=== PATIENT | male | born 1940 | race African-American/Black ===

== ENCOUNTER → 2017-02-03 | Outpatient (CLI) | payer MEDICARE ==
--- NOTE | 2017-02-03 10:29 | CT ---
EXAMINATION TYPE: CT ankle LT wo con DATE OF EXAM: 02/03/2017 COMPARISON: NONE HISTORY: Pain in Lt ankle and foot, primary osteoarthritis, pes planus, arthritis and pes planovalgus deformity all per order. CT DLP: 225 mGycm Automated exposure control for dose reduction was used. Scanning of the ankle is performed without co ntrast. FINDINGS: There is no acute fracture or dislocation in the left ankle. There is moderate to large inferior calc aneal spur. Distal Achilles tendon is felt within normal limits. There is marked narrowing of the posterior medial mortise with subchondral cystic change. Underlying ligamentous injury is suspected. There is narrowing of tibial articulation with lateral malleolus wit h subchondral cystic change. There is heterotopic ossification with posterior tibiotalar fluid. There is marked loss of normal sinus tarsi fat. There is joint space loss inferior anterior calcaneus articulation with cuboid. There is partial visu alization of metatarsal joints which are intact. The peroneal tendons are felt grossly intact. Dense vascular atherosclerotic calcification of arterial vessels noted. IMPRESSION: MARKED ANKLE MORTISE NARROWING RAISING CONCERN FOR OLD TRAUMA OR LIGAMENTOUS INJURY. DEGENERATIVE AND OTHER FINDINGS NOTED ABOVE. SINUS TARSI SYNDROME SUSPECTED.
== END | disposition home or self-care (01) ==
LOC: RADCTMAIN 08:22
PROVIDERS: ATTEND Orthopaedic Surgery
DX: R93.7 Abnormal findings on diagnostic imaging of other parts of musculoskeletal system (principal); M19.072 Primary osteoarthritis, left ankle and foot; M21.42 Flat foot [pes planus] (acquired), left foot

== ENCOUNTER → 2017-08-07 | Outpatient (CLI) | payer MEDICARE | END | disposition home or self-care (01) | LOC: PTMAIN 09:59 | PROVIDERS: ATTEND Otolaryngology | DX: R13.10 Dysphagia, unspecified (principal) | CPT/HCPCS: 31579 ==

== ENCOUNTER → 2017-11-17 | Outpatient (CLI) | payer MEDICARE ==
--- NOTE | 2017-11-17 14:33 | CT ---
EXAMINATION TYPE: CT lower extremity LT wo con DATE OF EXAM: 11/17/2017 COMPARISON: CT left ankle 02/03/2017 HISTORY: 77-year-old male Pain in left ankle and joints of left foot. Prophecy protocol. TECHNIQUE: Contiguous axial scanning of the left knee followed by the left ankle without IV contrast. Coronal and sagittal reconstructions performed. CT DLP: 832.9 mGycm Automated exposure control for dose reduction was used. FINDINGS: Imaging performed for surgical planning purposes. There is a left total knee arthroplasty. A some bon y fragmentation or heterotopic ossification along the superolateral aspect of the patella. There is a 1.6 x 0.9 cm bony exostosis projecting distally from the medial proximal tibial metaphysis . 1.6 cm loose body along the popliteus tendon sheath. Subsequent scanning of the ankle shows end-stage degenerative joint space narrowing at the tibiotalar joint more severe along the medial aspect of the joint. Moderate degenerative changes at the first M TP joint. Small plantar calcaneal spur. IMPRESSION: CT OF THE LEFT KNEE AND ANKLE FOR SURGICAL PLANNING PURPOSES. END-STAGE TIBIOTALAR JOINT OA AND PRIOR LEFT TOTAL KNEE ARTHROPLASTY. SOME BONY FRAGMENTATION OR HETEROTOPIC OSSIFICATION IS NOTED ALONG THE SUPEROLATERAL ASPECT OF THE PATELLA.
== END | disposition home or self-care (01) ==
LOC: RADCTMAIN 13:31
PROVIDERS: ATTEND Orthopaedic Surgery
DX: Z01.818 Encounter for other preprocedural examination (principal); M19.072 Primary osteoarthritis, left ankle and foot; Z96.652 Presence of left artificial knee joint

== ENCOUNTER → 2018-01-20 | Outpatient (CLI) | payer MEDICARE ==
--- NOTE | 2018-01-20 13:01 | MR ---
EXAMINATION TYPE: MR lumbar spine wo con DATE OF EXAM: 01/20/2018 COMPARISON: 09/11/2011 HISTORY: 77-year-old male Low back pain / Spondylosis TECHNIQUE: Multiplanar, multisequence images of the lumbar spine were acquired. Findings: Vertebral body heights are preserved. Hypertrophic facet arthropathy mid to lower lumbar spine with g rade 1 retrolisthesis at L2-L3 and L3-L4. Moderate multilevel degenerative disc disease redemonstrated with bulging discs and disc desiccation. Changes are more moderate to advanced at L2-L3 where there is mixed Modic type I and type II endplat e change, interval progression from 2011. Heterogeneous marrow signal without suspicious bone marrow replacement. Congenital spinal canal stenosis is noted. Multilevel ligamentum flavum thickening. Conus medullaris is normal. Multilevel severe spinal canal stenoses are redemonstrated. At T12-L1, no significant canal or foraminal stenosis. At L1-L2, minimal bulging disc with mild congenital canal narrowing. No significant canal or foramina l stenosis. At L2-L3, grade 1 retrolisthesis with facet arthropathy, ligamentum flavum thickening, and bulging di sc. This contributes to continued severe spinal canal stenosis. There is effacement of the CSF signal at this level. Moderate to severe bilateral neuroforaminal stenosis. At L3-L4, diffuse disc bulge with ligamentum flavum thickening and facet arthropathy as well as grade 1 retrolisthesis. There is continued severe spinal canal stenosis, increased in the interval. Comple te effacement of CSF signal. Moderate left and mild right neuroforaminal stenosis. At L4-L5, diffuse disc bulge with ligamentum flavum thickening and facet arthropathy. Changes result in moderate to severe spinal canal stenosis which may be slightly improved from prior exam. Minimal C SF signal is present at this level. Moderate bilateral neural foraminal stenosis. At L5-S1, diffuse disc bulge with hypertrophic facet arthropathy and ligamentum flavum thickening. Th ere is moderate to severe spinal canal stenosis with improvement and some of the previously seen epid ural lipomatosis. Moderate left and severe right neuroforaminal stenosis. No prevertebral or paravertebral soft tissue abnormality. IMPRESSION: 1. Moderate multilevel degenerative disc disease, more advanced at L2-L3 where the changes are progre ssed from 2012 now with mixed Modic type I and type II endplate change. 2. Hypertrophic facet arthropathy and ligamentum flavum thickening throughout with grade 1 retrolisth esis at L2-L3 and L3-L4 similar to prior. 3. Changes are superimposed on a congenital spinal canal stenosis. We note that there has been some i mprovement in the previous epidural lipomatosis in the lower lumbar spine. 4. However, multilevel severe spinal canal stenoses persist particularly at L2-L3 and increased at L3 -L4. 5. Moderate to severe spinal canal stenosis at L4-L5 and L5-S1, slightly improved at L5-S1. 6. Variable bilateral neuroforaminal stenoses as outlined above, severe on the right at L5-S1.
== END ==
LOC: RADMRIMAIN 08:46
PROVIDERS: ATTEND Physical Medicine & Rehabilitation
DX: M48.061 Spinal stenosis, lumbar region without neurogenic claudication (principal); M99.73 Connective tissue and disc stenosis of intervertebral foramina of lumbar region; M43.16 Spondylolisthesis, lumbar region; M51.36 Other intervertebral disc degeneration, lumbar region; M46.96 Unspecified inflammatory spondylopathy, lumbar region; E88.2 Lipomatosis, not elsewhere classified
CPT/HCPCS: 72148

== ENCOUNTER → 2018-03-29 | Outpatient (CLI) | payer MEDICARE ==
[2018-03-29 12:24] LABS: Appearance,Urine Clear (Clear); Bilirubin,Urine Negative (Negative); Blood,Urine Negative (Negative); Color,Urine Dark Yellow; Glucose,Urine (UA) Negative (Negative); HCT 46.5 % (39.0-53.0); HGB 14.9 gm/dL (13.0-17.5); Ketones,Urine Negative (Negative); Leukocyte Esterase,Urine Negative (Negative); MCH 32.4 pg (25.0-35.0); Macrocytosis Slight; Nitrite,Urine Negative (Negative); Platelet Count 210 k/uL (150-450); Protein,Urine Trace (Negative); RDW 14.3 % (11.5-15.5); Specific Gravity,Urine 1.017 (1.001-1.035); Urobilinogen,Urine <2.0 mg/dL (<2.0); WBC 5.4 k/uL (3.8-10.6)
[2018-03-29 12:28] LABS: Partial Thromboplastin Time 26.6 sec (22.0-30.0); Prothrombin Time 10.1 sec (9.0-12.0)
[2018-03-29 12:38] LABS: Calcium 10.4 mg/dL (8.4-10.2); Potassium 4.9 mmol/L (3.5-5.1); Total Bilirubin 0.6 mg/dL (0.2-1.3); Total Protein 7.4 g/dL (6.3-8.2)
== END | disposition home or self-care (01) ==
LOC: LABPAT 11:14
PROVIDERS: ATTEND Orthopaedic Surgery
DX: Z01.812 Encounter for preprocedural laboratory examination (principal); Z51.81 Encounter for therapeutic drug level monitoring; Z79.01 Long term (current) use of anticoagulants
CPT/HCPCS: 36415; 80053; 81003; 85027; 85610; 85730; 86850; 86900; 86901; 87070

== ENCOUNTER 2018-04-08 07:16 | Inpatient (IN) | payer MEDICARE ==
[2018-04-01 11:22] VITALS: BMI 33.0
[~2018-04-08 07:16] MED LIST: ACETAMINOPHEN TAB 500 MG TAB PO ONE; HYDROmorphone 0.5 MG/0.5 ML SYRINGE IVP PRN; LACTATED RINGERS 1,000 ML IV SCH; MELOXICAM 7.5 MG TAB PO ONE; MORPHINE SULFATE 2 MG/ML SYRINGE IV PRN; ROPIVACAINE 246.25 MG, EPINEPHrine 0.5 MG, KETOROLAC 30 MG, cloNIDine HCL/PF 80 MCG, WA... MISCELLANE ONE; TRANEXAMIC ACID 1,000 MG in SODIUM CHLORIDE 0.9% 50 ML IVPB ONE; ceFAZolin IN SWFI 2 GM/20 ML SYRINGE IVP ONE
[2018-04-08] MEDS ORDERED: LACTATED RINGERS 1,000 ML IV ONE ×2 (07:42→10:43)
[2018-04-08] MEDS ORDERED: ONDANSETRON 4 MG/2 ML VIAL IVP ONE (07:52)
[2018-04-08] MEDS ORDERED: DEXAMETHASONE SOD PHOS (MDV) 100 MG/10 ML VIAL IVP ONE (07:53)
[2018-04-08] MEDS ORDERED: MAGNESIUM HYDROXIDE 2,400 MG/10 ML CUP PO PRN (09:04)
[2018-04-08] MEDS ORDERED: HYDROmorphone 1 MG/ML 1 ML SYRINGE IVP PRN ×3 (09:04)
[2018-04-08] MEDS ORDERED: DIAZEPAM 5 MG TAB PO PRN (09:04)
[2018-04-08] MEDS ORDERED: hydrOXYzine PAMOATE 25 MG CAP PO PRN (09:04)
[2018-04-08] MEDS ORDERED: NALOXONE 0.4 MG/ML 1 ML VIAL IV PRN (09:04)
[2018-04-08] MEDS ORDERED: ONDANSETRON 4 MG/2 ML VIAL IVP PRN (09:04)
[2018-04-08] MEDS ORDERED: HYDROcodone/APAP 5-325MG 1 EACH TAB PO PRN (09:04)
[2018-04-08] MEDS ORDERED: MIDAZOLAM 2 MG/2 ML VIAL ONE (09:22)
[2018-04-08] MEDS ORDERED: fentaNYL (PF) 50 MCG/ML 2 ML AMP ONE (09:22)
[2018-04-08] MEDS ORDERED: PROPOFOL 10 MG/ML 20 ML VIAL IV ONE (09:22)
[2018-04-08] MEDS ORDERED: HEPARIN SODIUM,PORCINE 10,000 UNIT/ML 1 ML VIAL ONE (09:22)
[2018-04-08] MEDS ORDERED: TRANEXAMIC ACID 1,000 MG/10 ML VIAL ONE (09:22)
[2018-04-08] MEDS ORDERED: SODIUM CHLORIDE 0.9% 100 ML BAG ONE (09:22)
[2018-04-08] MEDS ORDERED: LACTATED RINGERS 1,000 ML BAG IV ONE (09:22)
[2018-04-08] MEDS ORDERED: PHENYLEPHRINE-0.9% NACL SYG 1 MG/10 ML SYRINGE ONE (09:22)
[2018-04-08] MEDS ORDERED: ceFAZolin 3,000 MG in SODIUM CHLORIDE 0.9% IRRIGATIO 3,000 ML IRRIGATION ONE (09:22)
--- NOTE | 2018-04-08 10:49 | P.OP ---
Date of Procedure: 04/08/18 Preoperative Diagnosis: Severe osteoarthritis left hip Postoperative Diagnosis: Severe osteoarthritis left hip Procedure(s) Performed: Left total hip arthroplasty with a direct anterior approach Implants: Martinez [employer] nephew Polarstem size 5 standard Martinez [employer]hew R3, 3 hole acetabular shell, 52 mm [employer]hew reflection 6.5 mm cancellus screw, 20 mm 2 [employer]hew R3, XLPE 20 acetabular liner [employer]hew Oxinium femoral head 36 m, +0 All components were press-fit. The articulation is Oxinium on polyethylene. Anesthesia: spinal Surgeon: Mata Simons Clerical Manager #1: Noa Menard Estimated Blood Loss (ml): 150 (64 mL returned with Cell Saver) Pathology: other (Femoral head) Condition: stable Disposition: PACU Indications for Procedure: After failure of conservative treatment we discussed the surgical and nonsurgical treatment options at length. Patient wishes to proceed with a total hip arthroplasty with a direct anterior approach. Complications specific to this procedure were discussed at length, including but not limited to infection, leg length discrepancy, dislocation, and nerve injury. Patient is aware of all these complications and informed consent was obtained Operative Findings: The operative findings are consistent with severe osteoarthritis of the left hip Description of Procedure: Patient was seen and evaluated in the preoperative area, consent was reviewed, and the surgical site was marked with a skin marker. Patient was then brought to the operating room and given prophylactic antibiotics intravenously. 1 g of Tranexamic acid was also given. A spinal anesthetic was administered by the anesthesia department. The patient was then placed on the [place] table with the bony prominences well-padded. The hip area was then prepped and draped in usual sterile fashion. A universal timeout was then performed, which confirmed the patient's name, surgical site, ALLERGIES, and procedure being performed. Next the incision site was located at 1 cm distal and 1 cm lateral to the anterior superior iliac spine. The skin and subcutaneous tissues were sharply incised. Incision was carefully dissected down to the fascia overlying the tensor fascia river muscle. This fascia was then incised in line with the incision. Next, using blunt finger dissection, the tensor fascia river muscle was dissected off its investing fascia. The muscle was then carefully retracted laterally with a cobra retractor over the lateral neck of the femur. Next, the circumflex vessels were identified and cauterized using the AquaMantis device. The anterior hip capsule was then exposed. The capsule was then opened and an inverted T fashion. Cobra retractors were then placed intracapsularly. The proximal femur was then visualized. The femoral neck was then osteotomized appropriate level above the lesser trochanter. Small amount of traction was placed with the [place] table. A small wedge of bone was then removed from the remaining femoral head. Next, using a corkscrew femoral head was easily removed from the acetabulum. On gross visual inspection, the femoral head had complete loss of articular cartilage in multiple periarticular osteophytes. Attention was then turned to the acetabulum. the acetabulum was exposed and any remaining labrum was excised. Sequential reaming of the acetabulum was performed using fluoroscopic guidance. When the appropriate size was reached, a trial was then placed. The position and fit of the trial was checked with fluoroscopy. The trial was then removed. Then, using fluoroscopic guidance, the final implant was impacted at 20 of anteversion and 40 of abduction, and fully seated in the acetabulum. 2 screws were then placed in the acetabulum. Again fluoroscopy was used to check position of the screws. Next, the liner was then impacted, with a 20 elevated liner located in the anterior superior quadrant. Component locking was confirmed. Attention was then directed to the femur. With the aid of the [place] table, the femur was externally rotated to approximately 130, extended, and abducted under the opposite leg. A side hook was then placed under the proximal femur, and the side hook elevator was used to elevate the proximal femur. Retractors were then placed. A capsular release was performed, as well as a release of the conjoined tendon, which afforded excellent visualization of the proximal femur. Next, a box osteotome was used to lateralize the proximal femur. A cutter hand was then used to locate the femoral canal. Sequential broaching was then performed with appropriate size which afforded excellent fixation in the proximal femur. A trial was then placed with appropriate head and neck, and the hip was gently reduced with the aid of the [place] table. Fluoroscopy was then used to check position of the components, as well as to ensure equal leg lengths. The hip was then gently dislocated and the trials were then removed. Final implants were then impacted and the hip was again reduced. Final fluoroscopic x-rays confirmed that the components were in anatomic position, as well as equal leg lengths. The hip was also taken through range of motion, and found to be stable. The hip was then copiously irrigated with antibiotic solution with pulsatile lavage. The hip was then irrigated with Irrisept solution. The soft tissues were then injected with a ropivacaine solution, which consisted of 246.25 mg of ropivacaine, 0.5 mg of epinephrine, 30 mg of Toradol, 80 g of clonidine, and 48.45 mL of sterile water, for a total of 100 mL of fluid injected. A second dose of 1 g of Tranexamic acid was also given. the fascia was then closed with 2-0 strata fix suture. The subcutaneous tissue was closed with 3-0 Vicryl. The subcuticular tissue was closed with 3-0 strata fix suture. The skin was then closed with Dermabond glue and a sterile silver dressing. The patient was then transferred to the recovery room in stable condition. The registered nurse first assistant LIZETH Petersen was required due to the complexity of surgery, and the need for skilled surgical services tech for positioning, draping, exposure, retraction, and closure of the wound.
--- NOTE | 2018-04-08 11:03 | FL ---
Fluoroscopy HISTORY: Anterior hip replacement 35 seconds fluoroscopy time supplied to the referring clinician. 2 intraoperative C-arm images docum ent the procedure. See dictated report from orthopedic surgery.
--- NOTE | 2018-04-08 11:03 | XR ---
Limited left hip HISTORY: Anterior hip replacement 2 intraoperative C-arm images document the procedure.
--- NOTE | 2018-04-08 12:21 | XR ---
EXAMINATION TYPE: XR Hip Limited LT DATE OF EXAM: 04/08/2018 CLINICAL HISTORY: Left hip pain and osteoarthritis. TECHNIQUE: Single AP portable view of left hip is obtained immediately postoperatively. COMPARISON: None. FINDINGS: Metallic hardware from left hip arthroplasty is seen and appears satisfactory in alignment and position. There is evidence of recent surgery with subcutaneous gas noted laterally. IMPRESSION: Metallic hardware from left hip arthroplasty is satisfactory in position.
[2018-04-08] MEDS: SODIUM CHLORIDE 0.9% 1,000 ML IV SCH (13:10)
--- NOTE | 2018-04-08 14:02 | P.CONS ---
History of Present Illness - Reason for Consult Consult date: 04/08/18 medical Management Requesting physician: Noa Menard - Chief Complaint OA of the left hip - History of Present Illness This is a 77-year-old male patient who presented for an elective total left hip arthroplasty with the direct anterior approach. Patient has a known past medical history of severe osteoarthritis of the left hip. Additional medical history includes GERD, hypertension, osteoarthritis, gout, joint replacement and carpal tunnel syndrome. Patient denies any cardiac history. Patient denies any history of COPD or CHF. Patient denies any diabetes history. Patient is currently resting comfortably in bed. At this time patient denies chest pain or shortness of breath. Patient denies nausea vomiting or diarrhea. Patient denies any urinary burning or frequency. Left hip dressing is clean dry and intact. Patient currently is family at bedside complaints at this time. A.m. labs have been ordered Review of Systems Please refer to HPI otherwise unremarkable Past Medical History Past Medical History: GERD/Reflux, Hypertension, Osteoarthritis (OA) Additional Past Medical History / Comment(s): GOUT IN LEFT HAND History of Any Multi-Drug Resistant Organisms: None Reported Past Surgical History: Joint Replacement, Orthopedic Surgery Additional Past Surgical History / Comment(s): CRYSTAL CARPAL TUNNEL, rt hip replacement, left knee replacement, PATIENT DENIES HISTORY OF HEART CATHERIZATION, ANTERIOR TOTAL LEFT HIP ARTHROPLASTY Past Anesthesia/Blood Transfusion Reactions: No Reported Reaction Past Psychological History: No Psychological Hx Reported Smoking Status: Never smoker Past Alcohol Use History: None Reported Past Drug Use History: None Reported - Past Family History Mother Family Medical History: Congestive Heart Failure (CHF) Brother(s) Family Medical History: Cancer Medications and Allergies Home Medications Medication Instructions Recorded Confirmed Type Aspirin 81 mg PO DAILY 03/10/14 04/08/18 History Atenolol [Tenormin] 25 mg PO QAM 03/10/14 04/08/18 History Cholecalciferol [Vitamin D3] 2,000 unit PO DAILY 03/10/14 04/08/18 History Potassium Chloride [Klor-Con 10] 10 meq PO DAILY 03/10/14 04/08/18 History Sildenafil Citrate [Viagra] 100 mg PO DIRECTED PRN 03/10/14 04/08/18 History Tamsulosin HCl [Flomax] 0.4 mg PO BID 03/10/14 04/08/18 History Allopurinol [Zyloprim] 300 mg PO DAILY 04/01/18 04/08/18 History HYDROcodone/APAP 10-325MG [[place] 1 tab PO Q6HR PRN 04/01/18 04/08/18 History 10-325] Latanoprost [Xalatan 0.005%] 1 drop BOTH EYES HS 04/01/18 04/08/18 History Multivitamins, Thera [Multivitamin 1 tab PO DAILY 04/01/18 04/08/18 History (formulary)] Pantoprazole [Protonix] 40 mg PO QAM 04/01/18 04/08/18 History Valsartan/Hydrochlorothiazide 1 tab PO QAM 04/01/18 04/08/18 History [Valsartan-Hctz 160-12.5 mg Tab] hydrOXYzine PAMOATE [Vistaril] 25 mg PO Q4-6H PRN 04/01/18 04/08/18 History Allergies Allergy/AdvReac Type Severity Reaction Status Date / Time latex Allergy Unknown Verified 04/08/18 13:15 Physical Exam Vitals: Vital Signs Temp Pulse Pulse Resp BP BP Pulse Ox 04/08/18 11:56 66 16 116/67 98 04/08/18 11:41 64 16 112/67 99 04/08/18 11:26 62 16 115/64 100 04/08/18 11:11 97.2 F L 75 16 119/60 100 04/08/18 07:36 97.8 F 80 18 136/74 98 Intake and Output 04/07/18 04/08/18 04/08/18 22:59 06:59 14:59 Intake Total 1201 Output Total 150 Balance 1051 Intake: IV 1201 Output: Estimated Blood Loss 150 Other: Weight 104.326 kg Head normocephalic Neck supple Lungs clear to auscultation bilaterally no wheezing or crackles Heart regular rate and rhythm S1-S2, no rub or gallop Abdomen is soft nontender nondistended positive bowel sounds no hepatosplenomegaly Extremities no edema. Left hip dressing clean Dry and intact Neuro alert and orientated to 3 Assessment and Plan Assessment: 1. Status post total left hip arthroplasty with Dr. Simons. Pain meds per surgical services. She currently on aspirin 325 twice a day for DVT prophylaxis 2. History of GERD. home meds resumed 3. Essential hypertension. Home meds resumed. 4. History of osteoarthritis 5. History of gout. home meds resumed. A.m. labs ordered Thank you for this consultation we will continue to follow patient closely throughout stay Patient planning to be DC'd home when cleared Time with Patient: Greater than 30 (Greater than 60% of the total time spent in counseling and coordination of care. I performed an examination of the patient and discussed their management with the Nurse Practitioner. I have reviewed the Nurse Practitioner's notes and agree with the documented findings and plan of care)
[2018-04-08 14:07] LABS: Albumin 3.4 g/dL (3.5-5.0); Calcium 9.4 mg/dL (8.4-10.2); Potassium 4.7 mmol/L (3.5-5.1); Total Bilirubin 0.5 mg/dL (0.2-1.3); Total Protein 6.4 g/dL (6.3-8.2)
[2018-04-08] MEDS: HYDROcodone/APAP 5-325MG 1 EACH TAB PO PRN ×2 (16:48→23:12)
[2018-04-08] MEDS: ceFAZolin IN SWFI 2 GM/20 ML SYRINGE IVP SCH (18:24)
[2018-04-08] MEDS ORDERED: LATANOPROST 0.005% OPHTH DROPS 2.5 ML BTL BOTH EYES SCH (21:00)
[2018-04-08] MEDS ORDERED: SENNOSIDES-DOCUSATE SODIUM 1 EACH TAB PO SCH (21:00)
[2018-04-08] MEDS: ASPIRIN 325 MG TAB PO SCH (21:16)
[2018-04-08] MEDS: TAMSULOSIN 0.4 MG CAP.ER.24H PO SCH (21:16)
[2018-04-09] MEDS: ceFAZolin IN SWFI 2 GM/20 ML SYRINGE IVP SCH (00:25)
[2018-04-09] MEDS: SODIUM CHLORIDE 0.9% 1,000 ML IV SCH (05:51)
[2018-04-09] MEDS: HYDROcodone/APAP 5-325MG 1 EACH TAB PO PRN ×2 (05:51→13:37)
[2018-04-09 07:57] LABS: Basophils % (A) 0 %; Eosinophils # (A) 0.1 k/uL (0-0.7); Eosinophils % (A) 1 %; HCT 40.6 % (39.0-53.0); HGB 13.2 gm/dL (13.0-17.5); Lymphocytes # (A) 1.2 k/uL (1.0-4.8); Lymphocytes % (A) 13 %; MCH 32.9 pg (25.0-35.0); MCHC 32.6 g/dL (31.0-37.0); MCV 100.9 fL (80.0-100.0); Macrocytosis Slight; Mean Platelet Volume 8.5; Monocytes # (A) 0.6 k/uL (0-1.0); Monocytes % (A) 7 %; Neutrophils # (A) 7.2 k/uL (1.3-7.7); Neutrophils % (A) 77 %; Platelet Count 176 k/uL (150-450); RBC 4.02 m/uL (4.30-5.90); RDW 13.7 % (11.5-15.5); WBC 9.4 k/uL (3.8-10.6)
[2018-04-09] MEDS: ASPIRIN 325 MG TAB PO SCH (08:08)
[2018-04-09] MEDS: TAMSULOSIN 0.4 MG CAP.ER.24H PO SCH (08:10)
[2018-04-09 08:19] LABS: Albumin 3.4 g/dL (3.5-5.0); Calcium 9.6 mg/dL (8.4-10.2); Potassium 4.5 mmol/L (3.5-5.1); Total Bilirubin 0.6 mg/dL (0.2-1.3); Total Protein 6.5 g/dL (6.3-8.2)
--- NOTE | 2018-04-09 08:24 | P.DS ---
Providers Date of admission: 04/08/18 07:16 Expected date of discharge: 04/09/18 Attending physician: Mata Simons Consults: 04/08/18 09:04 Consult Physician Routine Consulting Provider: Cassidy Cook Consult Reason/Comments: medical management Do you want consulting provider notified?: Yes Primary care physician: Cassidy Cook - Discharge Diagnosis(es) (1) S/P total hip arthroplasty Current Visit: Yes Status: Acute (2) Primary osteoarthritis of left hip Current Visit: Yes Status: Acute Hospital Course: This is a 77-year-old male with known history of degenerative arthritis of the left hip. The patient presents for evaluation. After discussion and consideration patient elects to proceed with total hip arthroplasty. The patient is seen preoperatively by Dr. Simons and medically cleared for surgery by their primary care physician. Patient is admitted to [facility] on 04/08/18 for total hip arthroplasty. The procedures performed without complication or sequelae. The patient is doing well postoperatively. Labs and vital signs are stable on day of discharge. On day of discharge patient's hip incision is healing well. There is minimal erythema. There is no drainage noted at this time. There is minimal soft tissue swelling to the hip and thigh. Patient has full foot and ankle motion without difficulty or pain. Neurovascular status to the left lower extremity is intact. Patient is discharged home in good condition. Please see med rec for accurate list of home medications. Plan - Discharge Summary Discharge Rx Participant: Yes New Discharge Prescriptions: New Aspirin 325 mg PO BID #60 tab No Action Tamsulosin HCl [Flomax] 0.4 mg PO BID Sildenafil Citrate [Viagra] 100 mg PO DIRECTED PRN PRN Reason: SEXUAL DYSFUNCTION Potassium Chloride [Klor-Con 10] 10 meq PO DAILY Cholecalciferol [Vitamin D3] 2,000 unit PO DAILY Atenolol [Tenormin] 25 mg PO QAM Aspirin 81 mg PO DAILY Latanoprost [Xalatan 0.005%] 1 drop BOTH EYES HS Pantoprazole [Protonix] 40 mg PO QAM HYDROcodone/APAP 10-325MG [[place] 10-325] 1 tab PO Q6HR PRN PRN Reason: Pain Valsartan/Hydrochlorothiazide [Valsartan-Hctz 160-12.5 mg Tab] 1 tab PO QAM Allopurinol [Zyloprim] 300 mg PO DAILY hydrOXYzine PAMOATE [Vistaril] 25 mg PO Q4-6H PRN PRN Reason: Pain Multivitamins, Thera [Multivitamin (formulary)] 1 tab PO DAILY Discharge Medication List Aspirin 81 mg PO DAILY 03/10/14 [History] Atenolol [Tenormin] 25 mg PO QAM 03/10/14 [History] Cholecalciferol [Vitamin D3] 2,000 unit PO DAILY 03/10/14 [History] Potassium Chloride [Klor-Con 10] 10 meq PO DAILY 03/10/14 [History] Sildenafil Citrate [Viagra] 100 mg PO DIRECTED PRN 03/10/14 [History] Tamsulosin HCl [Flomax] 0.4 mg PO BID 03/10/14 [History] Allopurinol [Zyloprim] 300 mg PO DAILY 04/01/18 [History] HYDROcodone/APAP 10-325MG [[place] 10-325] 1 tab PO Q6HR PRN 04/01/18 [History] Latanoprost [Xalatan 0.005%] 1 drop BOTH EYES HS 04/01/18 [History] Multivitamins, Thera [Multivitamin (formulary)] 1 tab PO DAILY 04/01/18 [History ] Pantoprazole [Protonix] 40 mg PO QAM 04/01/18 [History] Valsartan/Hydrochlorothiazide [Valsartan-Hctz 160-12.5 mg Tab] 1 tab PO QAM [History] hydrOXYzine PAMOATE [Vistaril] 25 mg PO Q4-6H PRN 04/01/18 [History] Aspirin 325 mg PO BID #60 tab 04/09/18 [Rx] Follow up Appointment(s)/Referral(s): Cassidy Cook MD [Primary Care Provider] - 1 Week Mata Simons DO [Doctor of Osteopathic Medicine] - 2 Weeks Activity/Diet/Wound Care/Special Instructions: Weightbearing as tolerated with walker. Leave dressing intact. Dressing may be removed by home care nurse in 10 days. May shower with dressing on. Pain management per primary care physician. Please follow-up with [facility] in 2 weeks and call with any questions or concerns, . Discharge Disposition: HOME WITH HOME HEALTH SERVICES
[2018-04-09] MEDS ORDERED: ATENOLOL 25 MG TAB PO SCH (09:00)
[2018-04-09] MEDS ORDERED: VALSARTAN 160 MG TAB PO SCH (09:00)
[2018-04-09] MEDS ORDERED: MELOXICAM 7.5 MG TAB PO SCH (09:00)
[2018-04-09] MEDS ORDERED: HYDROCHLOROTHIAZIDE 12.5 MG CAP PO SCH (09:00)
[2018-04-09] MEDS ORDERED: PANTOPRAZOLE 40 MG TABLET PO SCH (09:00)
[2018-04-09] MEDS ORDERED: ALLOPURINOL 300 MG TAB PO SCH (09:00)
[2018-04-09] MEDS ORDERED: CHOLECALCIFEROL 1,000 UNIT TAB PO SCH (09:00)
[2018-04-09] MEDS ORDERED: MULTIVITAMINS, THERA 1 EACH TAB PO SCH (09:00)
--- NOTE | 2018-04-09 10:19 | P.PN ---
Subjective Progress Note Date: 04/09/18 This is a 77-year-old male patient who presented for an elective total left hip arthroplasty with the direct anterior approach. Patient has a known past medical history of severe osteoarthritis of the left hip. Additional medical history includes GERD, hypertension, osteoarthritis, gout, joint replacement and carpal tunnel syndrome. Patient denies any cardiac history. Patient denies any history of COPD or CHF. Patient denies any diabetes history. Patient is currently resting comfortably in bed. At this time patient denies chest pain or shortness of breath. Patient denies nausea vomiting or diarrhea. Patient denies any urinary burning or frequency. Left hip dressing is clean dry and intact. Patient currently is family at bedside complaints at this time. A.m. labs have been ordered On 04/09/2018 patient is currently alert and oriented 3. Patient is currently sitting up in bed. Patient has no complaints at this time. Patient does state he has been up walking around. Patient is planning to be DC'd home today with family and friends. At this time patient denies chest pain or shortness breath. Patient denies nausea vomiting or diarrhea. Patient denies any urinary burning or frequency. Objective - Vital Signs Vital signs: Vital Signs Temp 97.5 F L 04/09/18 08:11 Pulse 70 04/09/18 08:11 Resp 18 04/09/18 08:11 BP 109/67 04/09/18 08:11 Pulse Ox 99 04/09/18 08:11 Intake & Output 04/08/18 04/09/18 04/09/18 18:59 06:59 18:59 Intake Total 1441 650 380 Output Total 550 800 250 Balance 891 -150 130 Weight 104.326 kg Intake: IV 1201 Intake, IV Titration 650 Amount Sodium Chloride 0.9% 1, 650 000 ml @ 65 mls/hr IV . [id number] SHABNAM Rx#:[id number] Oral 240 380 Output: Urine 400 800 250 Estimated Blood Loss 150 Other: # Voids 2 - Exam ead normocephalic Neck supple Lungs clear to auscultation bilaterally no wheezing or crackles Heart regular rate and rhythm S1-S2, no rub or gallop Abdomen is soft nontender nondistended positive bowel sounds no hepatosplenomegaly Extremities no edema. Left hip dressing clean Dry and intact Neuro alert and orientated to 3 - Labs CBC & Chem 7: 04/09/18 07:42 04/09/18 07:42 Labs: Abnormal Lab Results - Last 24 Hours (Table) 04/08/18 04/09/18 04/09/18 Range/Units 13:34 07:42 07:42 RBC 4.02 L (4.30-5.90) m/uL MCV 100.9 H (80.0-100.0) fL Chloride 111 H 109 H (98-107) mmol/L Carbon Dioxide 18 L (22-30) mmol/L BUN 30 H 36 H (9-20) mg/dL Creatinine 1.27 H (0.66-1.25) mg/dL Glucose 188 H 128 H (74-99) mg/dL Albumin 3.4 L 3.4 L (3.5-5.0) g/dL Assessment and Plan Assessment: 1. Status post total left hip arthroplasty with Dr. Simons. Pain meds per surgical services. Patient currently on aspirin 325 twice a day for DVT prophylaxis. Patient is currently postop day 1. Patient has adequate pain control at this time 2. History of GERD. home meds resumed 3. Essential hypertension. Home meds resumed. 4. History of osteoarthritis 5. History of gout. home meds resumed. 6. Elevated creatinine this does appear baseline for patient. Creatinine 1.27. Patient to follow up closely with PCP Thank you for this consultation we will continue to follow patient closely throughout stay Patient planning to be DC'd home when cleared I performed an examination of the patient and discussed their management with the Nurse Practitioner. I have reviewed the Nurse Practitioner's notes and agree with the documented findings and plan of care
[2018-04-09 14:26] VITALS: BP 96/58; PULSE 81; RESP 16; TEMP 98.1
== END 2018-04-09 14:50 | disposition home health service (06) | DRG 470 ==
LOC: 2ORMAIN 07:16 → 4SSUR 11:05
PROVIDERS: ADMIT Orthopaedic Surgery; ATTEND Orthopaedic Surgery
PROC: 0SRB06A Replacement of Left Hip Joint with Oxidized Zirconium on Polyethylene Synthetic Substitute, Uncemented, Open Approach (ICD-10-PCS; principal; 2018-04-08 09:15)
DX: M16.12 Unilateral primary osteoarthritis, left hip (principal); I10 Essential (primary) hypertension; K21.9 Gastro-esophageal reflux disease without esophagitis; Z79.82 Long term (current) use of aspirin; Z82.49 Family history of ischemic heart disease and other diseases of the circulatory system; Z96.641 Presence of right artificial hip joint; Z96.652 Presence of left artificial knee joint; Z79.899 Other long term (current) drug therapy; Z88.5 Allergy status to narcotic agent; Z98.42 Cataract extraction status, left eye; Z98.41 Cataract extraction status, right eye; Z91.040 Latex allergy status; R79.89 Other specified abnormal findings of blood chemistry; Z79.891 Long term (current) use of opiate analgesic; M10.9 Gout, unspecified
CPT/HCPCS: 73501; 80053; 85025; 86850; 86891; 86900; 86901; 88300

== ENCOUNTER → 2018-06-24 | Outpatient (CLI) | payer MEDICARE ==
--- NOTE | 2018-06-25 08:04 | CT ---
EXAMINATION TYPE: CT lower extremity LT wo con DATE OF EXAM: 06/24/2018 COMPARISON: 11/17/2017 knee HISTORY: Pain in left ankle and joints of left foot. Prophecy protocol. CT DLP: 630 mGycm Automated exposure control for dose reduction was used. TECHNIQUE: Axial images 3 mm thick sections. 1 mm axial sections were also obtained at the level of t he ankle.. Reconstructed images in the coronal plane and sagittal plane are presented. Images are obt ained through a knee prosthesis causes beam hardening artifact. This may has some limitation. FINDINGS: Left knee: No acute fractures evident. Prosthesis appears intact. No acute fractures are adjacent to the prosthesis. No suspicious lucency to suggest loosening is identified based on these images. There is fragmentation of the superior portion of the patella. This may be related to bipartite danielle la margins appear smooth. Old nonunion fracture could be considered. Finding appears stable from comp arison. Talotibial degenerative changes are noted at the ankle. The talar articular surface appears irregular there is loss of the joint space. The ankle mortise appears intact. Vascular calcifications present IMPRESSION: 1. 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 2. LEFT KNEE PROSTHESIS APPEARS STABLE FROM COMPARISON. 3. ADVANCED OSTEOARTHRITIC DEGENERATIVE CHANGE TALOTIBIAL JUNCTION WITH LOSS OF JOINT SPACE, SUBCHOND RAL CYST FORMATION AND SCLEROTIC CHANGES AT THE ANKLE. 4. CT PERFORMED FOR PRESURGICAL PLANNING.
== END ==
LOC: RADCTMAIN 15:58
PROVIDERS: ATTEND Orthopaedic Surgery
DX: M17.12 Unilateral primary osteoarthritis, left knee (principal); Q74.1 Congenital malformation of knee; Z96.652 Presence of left artificial knee joint

== ENCOUNTER 2021-06-28 19:18 | Emergency (ER) | payer MEDICARE ==
--- NOTE | 2021-06-28 21:50 | XR ---
EXAMINATION TYPE: XR chest 2V DATE OF EXAM: 06/28/2021 COMPARISON: Chest x-ray 03/17/2014 HISTORY: Cough TECHNIQUE: Frontal and lateral views of the chest are obtained. FINDINGS: There is no focal air space opacity, pleural effusion, or pneumothorax seen. The cardiac silhouette size is within normal limits. Gastric bubble beneath the left hemidiaphragm is prominent similar to prior exam, left hemidiaphragm is elevated, correlate for possible left diaphragmatic para lysis. There may be some basilar atelectatic change or scarring. The osseous structures are intact. IMPRESSION: Findings are similar to prior exam.
--- NOTE | 2021-06-28 22:06 | ED ---
General Adult HPI - General Chief complaint: Upper Respiratory Infection Stated complaint: Covid test Time Seen by Provider: 06/28/21 19:38 Source: patient, family, RN notes reviewed, old records reviewed Mode of arrival: ambulatory Limitations: no limitations - History of Present Illness Initial comments: Patient is a 80-year-old male who presents emergency Department complaining of uppersymptoms. Patient's grandson has similar complaints as well as a fever. Patient is concerned regarding possible Covid infection. Clinically runny nose as well as a mild cough. No shortness of breath, chest pain, fevers. No nausea or vomiting or diarrhea. Patient was fully vaccinated for COVID-19 including booster. No other acute complaints at this time. Requesting COVID-19 swab. Did receive his flu vaccine as well. - Related Data Home Medications Medication Instructions Recorded Confirmed Cholecalciferol [Vitamin D3 (25 2,000 unit PO DAILY 03/10/14 04/08/18 Mcg = 1000 Iu)] Potassium Chloride [Klor-Con 10] 10 meq PO DAILY 03/10/14 04/08/18 Sildenafil Citrate [Viagra] 100 mg PO DIRECTED PRN 03/10/14 04/08/18 Tamsulosin HCl [Flomax] 0.4 mg PO BID 03/10/14 04/08/18 atenoloL [Tenormin] 25 mg PO QAM 03/10/14 04/08/18 HYDROcodone/APAP 10-325MG [Tibbie 1 tab PO Q6HR PRN 04/01/18 04/08/18 10-325] Latanoprost [Xalatan 0.005%] 1 drop BOTH EYES HS 04/01/18 04/08/18 Multivitamins, Thera [Multivitamin 1 tab PO DAILY 04/01/18 04/08/18 (formulary)] Pantoprazole [Protonix] 40 mg PO QAM 04/01/18 04/08/18 Valsartan/Hydrochlorothiazide 1 tab PO QAM 04/01/18 04/08/18 [Valsartan-Hctz 160-12.5 mg Tab] allopurinoL [Zyloprim] 300 mg PO DAILY 04/01/18 04/08/18 Previous Rx's Medication Instructions Recorded Aspirin 325 mg PO BID #60 tab 04/09/18 Albuterol Inhaler [Ventolin Hfa 1 puff INHALATION RT-QID #8 gm 06/28/21 Inhaler] Dexamethasone [Decadron] 6 mg PO DAILY 5 Days #5 tablet 06/28/21 Allergies Allergy/AdvReac Type Severity Reaction Status Date / Time latex Allergy Unknown Verified 06/28/21 19:35 Review of Systems ROS Statement: Those systems with pertinent positive or pertinent negative responses have been documented in the HPI. Review of Systems: CONST: Denies fever EYES: Denies blurry vision ENT: Endorses nasal congestion C/V: Denies Chest pain RESP: Denies shortness of breath GI: Denies abdominal pain : Denies dysuria SKIN: Denies rash. MSK: Denies joint pain. NEURO: Denies headache ROS Other: All systems not noted in ROS Statement are negative. Past Medical History Past Medical History: GERD/Reflux, Hypertension, Osteoarthritis (OA), Prostate Disorder Additional Past Medical History / Comment(s): GOUT IN LEFT HAND History of Any Multi-Drug Resistant Organisms: None Reported Past Surgical History: Joint Replacement, Orthopedic Surgery Additional Past Surgical History / Comment(s): CRYSTAL CARPAL TUNNEL, rt hip replacement, left knee replacement, PATIENT DENIES HISTORY OF HEART CATHERIZATION, ANTERIOR TOTAL LEFT HIP ARTHROPLASTY Past Anesthesia/Blood Transfusion Reactions: No Reported Reaction Past Psychological History: No Psychological Hx Reported Smoking Status: Never smoker Past Alcohol Use History: Heavy Past Drug Use History: None Reported - Past Family History Mother Family Medical History: Congestive Heart Failure (CHF) Brother(s) Family Medical History: Cancer General Exam - General Exam Comments Initial Comments: General: Appears in no acute distress. HEAD: Normal with no signs of head trauma. EYES: EOMI ENT: Hearing grossly intact, normal oropharynx. RESPIRATORY: Clear breath sounds bilaterally. No wheezes, rales, or rhonchi. No increased work of breathing. No hypoxia. C/V: Regular rate and rhythm. S1 and S2 auscultated, no edema, peripheral pulses 2+ and intact throughout ABD: Abd is soft, nontender, nondistended EXT: no obvious deformity SKIN: No rashes or lesions observed on exposed skin. NEURO: Alert and oriented 4 Limitations: no limitations Course Vital Signs 06/28/21 06/28/21 06/28/21 19:29 19:45 22:10 Temperature 98.5 F 98.2 F Pulse Rate 80 76 Respiratory 22 20 18 Rate Blood Pressure 141/83 137/80 O2 Sat by Pulse 99 97 Oximetry Medical Decision Making - Medical Decision Making Based on the patient's presentation and physical exam, I'm concerned for COVID- 19 infection. We will obtain Covid swabs, flu swabs as well as a chest x-ray. He was in agreement with this plan. Patient is positive for COVID-19 negative for flu. Chest x-ray revealed no acute process. I discussed results of the patient. He does not meet criteria for monoclonal antibody therapy. We discussed warning quarentine. He'll be given prescription for Decadron, albuterol. Patient was in agreement this plan. I recommended he obtain a pulse ox. I will provide the patient with a prescription for albuterol, Decadron. I instructed the patient to follow up with their PCP in the next 3 days. I explained that the patient should return to the emergency department if they experience any worsening symptoms. Strict return precautions were discussed with the patient. The patient expressed understanding of these instructions. I answered all questions that the patient had. The patient was discharged home in good condition with their prescriptions and follow up information. - Lab Data Lab Results 06/28/21 06/28/21 Range/Units 20:11 20:11 Coronavirus (PCR) Detected A (Not Detectd) Influenza Type A RNA Not Detected (Not Detectd) Influenza Type B (PCR) Not Detected (Not Detectd) Disposition Clinical Impression: COVID-19 virus infection Disposition: HOME SELF-CARE Condition: Good Instructions (If sedation given, give patient instructions): Coronavirus Disease 2019 (COVID-19), COVID-19 (Coronavirus Disease 2019) (ED), COVID-19 and Chronic Health Conditions (ED), COVID-19: Slow the Coronavirus Spread (ED), Face Coverings (Masks) and COVID-19 (ED) Additional Instructions: Use over the counter zinc and vitamin C daily. Quarentine until 2 days after being symptom free. Stay hydrated. Used daily steroids and albuterol as needed for home. Obtain a pulse oximeter to monitor oxygen levels at home. Prescriptions: Dexamethasone [Decadron] 6 mg PO DAILY 5 Days #5 tablet Albuterol Inhaler [Ventolin Hfa Inhaler] 1 puff INHALATION RT-QID #8 gm Is patient prescribed a controlled substance at d/c from ED?: No Referrals: Cassidy Cook MD [Primary Care Provider] - 1-2 days
[2021-06-28 22:49] VITALS: BP 137/80; PULSE 76; RESP 18; TEMP 98.2
== END 2021-06-28 22:10 | disposition home or self-care (01) ==
LOC: EC 19:18
DX: U07.1 COVID-19 (principal); K21.9 Gastro-esophageal reflux disease without esophagitis; I10 Essential (primary) hypertension; M19.90 Unspecified osteoarthritis, unspecified site; Z79.82 Long term (current) use of aspirin; Z91.040 Latex allergy status; Z96.641 Presence of right artificial hip joint; Z96.652 Presence of left artificial knee joint
CPT/HCPCS: 71046; 87502; 87635; 99283

== ENCOUNTER → 2022-02-24 | Outpatient (CLI) | payer MEDICARE ==
--- NOTE | 2022-02-24 12:26 | XR ---
EXAMINATION TYPE: XR chest 2V DATE OF EXAM: 02/24/2022 11:47 AM COMPARISON: Chest radiographs from 06/28/2021 TECHNIQUE: XR chest 2V Frontal and lateral views of the chest. CLINICAL INDICATION:Male, 81 years old with history of SOB; FINDINGS: Lungs/Pleura: There is no evidence of pleural effusion, focal consolidation, or pneumothorax. Pulmonary vascularity: Unremarkable. Heart/mediastinum: Cardiomediastinal silhouette is unremarkable. Musculoskeletal: No acute osseous pathology. Other findings: Elevated left diaphragm with gastric air bubble noted. IMPRESSION: 1. No acute cardiopulmonary disease/process. 2. Elevated left diaphragm with gastric air bubble. This is unchanged from prior.
== END | disposition home or self-care (01) ==
LOC: RADXRMAIN 11:28
PROVIDERS: ATTEND Internal Medicine
DX: J98.6 Disorders of diaphragm (principal)
CPT/HCPCS: 71046

== ENCOUNTER → 2022-11-07 | Outpatient (CLI) | payer MEDICARE ==
--- NOTE | 2022-11-07 11:28 | FL ---
EXAMINATION TYPE: FL sniff test without CXR DATE OF EXAM: 11/07/2022 10:11 AM CLINICAL INDICATION:Male, 82 years old with history of J98.6 DISORDERS OF DIAPHRAGM; COMPARISON: Chest radiograph from 10/17/2022 TECHNIQUE: With the patient standing, fluoroscopy of the right and left hemidiaphragm was observed du ring normal resting respiration as well as deep inspiration, deep expiration, and "sniffing." Fluoroscopic time: 27 seconds Fluoroscopic images: 0 Radiographs taken: 4 DAP: 257.19 mGym2 FINDINGS: No evidence for pneumothorax or pleural effusion. The left diaphragm is slightly elevated compared to the right. The left diaphragm contracts during inspiration. Both hemidiaphragms move together. Normal excursion is demonstrated of the left hemidiaphragm. The right diaphragm contracts during inspiration. Both hemidiaphragms move together. Normal excursion is demonstrated of the right hemidiaphragm. IMPRESSION: Equal excursion of the diaphragms bilaterally. No evidence for paralysis.
== END | disposition home or self-care (01) ==
LOC: RADUSWWP 09:51
PROVIDERS: ATTEND Internal Medicine
DX: J98.6 Disorders of diaphragm (principal)
CPT/HCPCS: 76000

== ENCOUNTER → 2023-01-07 | Outpatient (CLI) | payer MEDICARE ==
--- NOTE | 2023-01-07 11:33 | MR ---
EXAMINATION TYPE: MR lumbar spine wo con DATE OF EXAM: 01/07/2023 COMPARISON: 01/20/2018 HISTORY: Lower back pain x 2 years. TECHNIQUE: T1 and T2 axial and sagittal images of the lumbar spine are submitted. FINDINGS: There is no abnormal signal seen within the visualized spinal cord or paraspinal soft tissu es. Simple appearing left renal cyst. Aorta normal caliber. There is degenerative disc disease disc bulging T11-T12 T12-L1. There is a posterior impression on th e sagittal views the second T11-T12 which is not included Axial images. At L1-2 there is circumferential disc bulging with no canal stenosis. Hypertrophic changes sets. Neur al foramina. At L2-3 there is severe degenerative disc disease. Hypertrophic changes of facets. Circumferential di sc bulging. There is an area of abnormal signal which appears low on T1 and T2 within the right neura l foramina severe right-sided foraminal. There is a 3 mm retrolisthesis of L2 relative to L3 moderate to severe left-sided foraminal impingement. Mild canal stenosis due to diffuse disc bulging. At L3-4 there is a vacuum disc compatible severe degenerative disc disease. Hypertrophied ligamentum flavum and facet joints with circumferential disc bulging borderline mild central stenosis with mild bilateral foraminal encroachment. Stable 1 to 2 mm retrolisthesis L3-L4. At L4-5 there is vacuum disc with severe degenerative disc disease and broad-based disc bulging. Hype rtrophy of the ligamentum flavum and facet joints results in mild central stenosis and bilateral mild foraminal encroachment.. At L5-S1 there is facet arthropathy. There is a large area of abnormal signal adjacent to the right f acet joint measuring 8 mm most likely on the basis of a synovial cyst favored over extruded disc frag ment. This does result in severe right-sided foraminal encroachment, lateral recess stenosis and mode rate lateral compression of the thecal sac and canal stenosis. Advanced facet arthropathy. Mild left- sided foraminal encroachment. Stable epidural lipomatosis. IMPRESSION: 1. There is an area of low signal on T1 and T2 within the right L2-L3 neural foramina results in near -complete obstruction of the foramina. Suggestive calcified structure. Possibly calcified extruded di sc fragment. Recommend postcontrast imaging for further assessment. Additionally, there is canal sten osis and severe left-sided foraminal encroachment. 2. Multilevel severe degenerative disc disease similar to prior exam. Posterior thecal sac constricti on at T11-T12 could be related to epidural lipomatosis. Disc bulging at this level. Recommend thoraci c spine MRI. 3. There is lateral thecal sac constriction at L5-S1 resulting in significant canal stenosis and jacquelyn re foraminal encroachment on the right. There is a 8mm area of intermediate signal adjacent to the ri ght facet joint. Would favor that this is a synovial cyst over extruded disc fragment but postcontras t imaging recommended. 4. Multilevel additional mild canal stenosis and foraminal encroachment as discussed above.
== END | disposition home or self-care (01) ==
LOC: RADMRIMAIN 09:15
PROVIDERS: ATTEND Internal Medicine
DX: M51.36 Other intervertebral disc degeneration, lumbar region (principal); M51.34 Other intervertebral disc degeneration, thoracic region; M48.061 Spinal stenosis, lumbar region without neurogenic claudication
CPT/HCPCS: 72148

== ENCOUNTER 2023-12-01 10:46 | Day surgery (SDC) | payer MEDICARE ==
[2023-12-01] MEDS: IV FLUID CONTINUATION 1,000 ML IV ONE (11:13)
[2023-12-01 11:21] VITALS: TEMP 97.2
[2023-12-01] MEDS: LACTATED RINGERS 1,000 ML IV SCH (11:24)
[2023-12-01] MEDS ORDERED: PROPOFOL 10 MG/ML 20 ML VIAL IV ONE (11:40)
--- NOTE | 2023-12-01 11:41 | P.GSHP ---
History of Present Illness H&P Date: 12/01/23 Chief Complaint: Colon cancer screening 83-year-old male here for colonoscopy. Last colonoscopy over 10 years ago. No bowel complaints. No family history of colon cancer. Past Medical History Past Medical History: GERD/Reflux, Hyperlipidemia, Hypertension, Osteoarthritis (OA), Prostate Disorder Additional Past Medical History / Comment(s): GOUT IN LEFT HAND History of Any Multi-Drug Resistant Organisms: None Reported Past Surgical History: Joint Replacement, Orthopedic Surgery Additional Past Surgical History / Comment(s): CRYSTAL CARPAL TUNNEL, rt hip replacement, left knee replacement, PATIENT DENIES HISTORY OF HEART CATHERIZATION, ANTERIOR TOTAL LEFT HIP ARTHROPLASTY. BILATERAL CATARACTS REMOVAL/LENS, lft ankle Past Anesthesia/Blood Transfusion Reactions: No Reported Reaction Smoking Status: Never smoker - Past Family History Brother(s) Family Medical History: Cancer Medications and Allergies Home Medications Medication Instructions Recorded Confirmed Type Cholecalciferol [Vitamin D3 (25 2,000 unit PO DAILY 03/10/14 12/01/23 History Mcg = 1000 Iu)] Potassium Chloride [Klor-Con 10] 10 meq PO QAM 03/10/14 12/01/23 History Sildenafil Citrate [Viagra] 100 mg PO DIRECTED PRN 03/10/14 12/01/23 History Tamsulosin HCl [Flomax] 0.4 mg PO BID 03/10/14 12/01/23 History atenoloL [Tenormin] 25 mg PO QAM 03/10/14 12/01/23 History HYDROcodone/APAP 10-325MG [Barnum 1 tab PO Q6HR PRN 04/01/18 12/01/23 History 10-325] Latanoprost [Xalatan 0.005%] 1 drop BOTH EYES HS 04/01/18 12/01/23 History Multivitamins, Thera [Multivitamin 1 tab PO DAILY 04/01/18 11/30/23 History (formulary)] allopurinoL [Zyloprim] 300 mg PO QAM 04/01/18 12/01/23 History Aspirin [Adult Low Dose Aspirin EC] 81 mg PO DAILY 06/27/22 11/30/23 History Ezetimibe [Zetia] 5 mg PO QAM 06/27/22 12/01/23 History Omeprazole 20 mg PO QAM 06/27/22 12/01/23 History Thiamine [Vitamin B-1] 1 tab PO DAILY 06/27/22 12/01/23 History Valsartan/Hydrochlorothiazide 1 tab PO QAM 06/27/22 12/01/23 History [Diovan Hct 160-12.5 mg Tab] Vitamin B Complex 1 cap PO DAILY 06/27/22 12/01/23 History Zinc Gluconate [Zinc] 50 mg PO DAILY 06/27/22 12/01/23 History Allergies Allergy/AdvReac Type Severity Reaction Status Date / Time latex Allergy Unknown Verified 12/01/23 11:08 Surgical - Exam Vital Signs Temp Pulse Resp BP Pulse Ox 97.2 F L 74 16 104/68 97 12/01/23 11:20 12/01/23 11:20 12/01/23 11:20 12/01/23 11:20 12/01/23 11:20 Physical exam: General: Well-developed, well-nourished HEENT: Normocephalic, sclerae nonicteric Abdomen: Nontender, nondistended Extremities: No edema Neuro: Alert and oriented Assessment and Plan (1) Colon cancer screening Narrative/Plan: Will proceed with colonoscopy at this time. Current Visit: Yes Status: Acute Code(s): Z12.11 - ENCOUNTER FOR SCREENING FOR MALIGNANT NEOPLASM OF COLON SNOMED Code(s): 592446247
--- NOTE | 2023-12-01 11:59 | P.PCN ---
Date of Procedure: 12/01/23 Procedure(s) Performed: PREOPERATIVE DIAGNOSIS: Colon cancer screening POSTOPERATIVE DIAGNOSIS: Transverse colon polyp x 2, diverticulosis, tortuous colon PROCEDURE: Colonoscopy with snare polypectomy ANESTHESIA: MAC SURGEON: Omar Torres M.D. SPECIMENS: Polyp ENDOSCOPIC PROCEDURE: The patient was placed on the endoscopy table in the left decubitus position. The Olympus colonoscope was inserted into the anus and passed under direct visualization to the mid transverse colon. I was able to visualize a 1.5 cm polyp in the transverse colon from a distance. With some difficulty I was able to get the scope at the level of the polyp. There was an adjacent smaller 5 mm polyp. Both were removed using the snare with cautery technique. There was some darker color to the mucosa in that area and I questioned whether there may have been a previous tattooing there. The larger polyp was removed. The remainder of the transverse descending sigmoid and rectum appeared normal with the exception of significant diverticulosis. We were unable to advance the scope more proximal than the transverse colon on today's exam. Digital rectal examination was normal. The patient was taken to the recovery room in stable condition per anesthesia guidelines. RECOMMENDATIONS: Await biopsy results. Recommend repeat colonoscopy 6 to 12 months.
[2023-12-01 12:06] VITALS: RESP 14
[2023-12-01 12:18] VITALS: BP 149/81; PULSE 69
== END 2023-12-01 12:47 | disposition home or self-care (01) ==
LOC: ORWHC2ENDO 10:46
PROVIDERS: ATTEND Surgery
DX: Z12.11 Encounter for screening for malignant neoplasm of colon (principal); D12.3 Benign neoplasm of transverse colon; K57.30 Diverticulosis of large intestine without perforation or abscess without bleeding; K21.9 Gastro-esophageal reflux disease without esophagitis; I10 Essential (primary) hypertension; E78.5 Hyperlipidemia, unspecified; N40.0 Benign prostatic hyperplasia without lower urinary tract symptoms; Z91.040 Latex allergy status; Z79.899 Other long term (current) drug therapy; Z79.82 Long term (current) use of aspirin
CPT/HCPCS: 88305; 45385; J2704

== ENCOUNTER 2024-02-13 19:03 | Emergency (ER) | payer MEDICARE ==
[2024-02-13 19:08] VITALS: TEMP 97.7
[2024-02-13] MEDS ORDERED: CEPHALEXIN 500 MG CAP PO STA (19:12)
--- NOTE | 2024-02-13 19:25 | ED ---
Abdominal Pain HPI - General Chief Complaint: Abdominal Pain Stated Complaint: abd pain Time Seen by Provider: 02/13/24 19:23 Source: patient, family, RN notes reviewed Mode of arrival: wheelchair Limitations: no limitations - History of Present Illness Initial Comments: 83-year-old male with history of hypertension and pancreatitis presenting to the ER with chief complaint of abdominal pain x 1 day. States earlier today he began to feel a constant, sharp pain around the umbilicus with bloating. Pain does not radiate. States he is having frequent belching which relieves symptoms. States it feels like acid reflux. Denies nausea, vomiting, diarrhea, constipation. States this began shortly after a meal of grits with margarine. Last bowel movement was this morning and was normal. States he took Pepto- Bismol prior to arrival which relieved symptoms mildly. Denies other cardiac or pulmonary conditions. Denies blood thinners. He is a non-smoker. - Related Data Home Medications Medication Instructions Recorded Confirmed Cholecalciferol [Vitamin D3 (25 2,000 unit PO DAILY 03/10/14 12/01/23 Mcg = 1000 Iu)] Potassium Chloride [Klor-Con 10] 10 meq PO QAM 03/10/14 12/01/23 Sildenafil Citrate [Viagra] 100 mg PO DIRECTED PRN 03/10/14 12/01/23 Tamsulosin HCl [Flomax] 0.4 mg PO BID 03/10/14 12/01/23 atenoloL [Tenormin] 25 mg PO QAM 03/10/14 12/01/23 HYDROcodone/APAP 10-325MG [[place] 1 tab PO Q6HR PRN 04/01/18 12/01/23 10-325] Latanoprost [Xalatan 0.005%] 1 drop BOTH EYES HS 04/01/18 12/01/23 Multivitamins, Thera [Multivitamin 1 tab PO DAILY 04/01/18 11/30/23 (formulary)] allopurinoL [Zyloprim] 300 mg PO QAM 04/01/18 12/01/23 Aspirin [Adult Low Dose Aspirin EC] 81 mg PO DAILY 06/27/22 11/30/23 Ezetimibe [Zetia] 5 mg PO QAM 06/27/22 12/01/23 Omeprazole 20 mg PO QAM 06/27/22 12/01/23 Thiamine [Vitamin B-1] 1 tab PO DAILY 06/27/22 12/01/23 Valsartan/Hydrochlorothiazide 1 tab PO QAM 06/27/22 12/01/23 [Diovan Hct 160-12.5 mg Tab] Vitamin B Complex 1 cap PO DAILY 06/27/22 12/01/23 Zinc Gluconate [Zinc] 50 mg PO DAILY 06/27/22 12/01/23 Allergies Allergy/AdvReac Type Severity Reaction Status Date / Time codeine Allergy Rash/Hives Verified 02/13/24 19:09 latex Allergy Unknown Verified 12/01/23 11:08 Review of Systems ROS Statement: Those systems with pertinent positive or pertinent negative responses have been documented in the HPI. ROS Other: All systems not noted in ROS Statement are negative. 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 BILATERAL CATARACTS REMOVAL/LENS, lft ankle Past Anesthesia/Blood Transfusion Reactions: No Reported Reaction Past Psychological History: No Psychological Hx Reported Smoking Status: Never smoker - Past Family History Brother(s) Family Medical History: Cancer General Exam Limitations: no limitations General appearance: alert, in no apparent distress Head exam: Present: atraumatic, normocephalic, normal inspection Eye exam: Present: normal appearance, PERRL, EOMI. Absent: scleral icterus, conjunctival injection, periorbital swelling ENT exam: Present: normal exam, mucous membranes moist Respiratory exam: Present: normal lung sounds bilaterally. Absent: respiratory distress, wheezes, rales, rhonchi, stridor Cardiovascular Exam: Present: regular rate, normal rhythm, normal heart sounds. Absent: systolic murmur, diastolic murmur, rubs, gallop, clicks GI/Abdominal exam: Present: soft, normal bowel sounds. Absent: distended, tenderness, guarding, rebound, rigid Neurological exam: Present: alert, oriented X3 Psychiatric exam: Present: normal affect, normal mood Skin exam: Present: warm, dry, intact, normal color. Absent: rash Course Vital Signs 02/13/24 19:05 Temperature 97.7 F Pulse Rate 82 Respiratory 16 Rate Blood Pressure 134/88 O2 Sat by Pulse 98 Oximetry Medical Decision Making - Medical Decision Making Was pt. sent in by a medical professional or institution (LIZETH Sharma, [employer], urgent care, hospital, or [place] health care facility...) When possible be specific @ -No Did you speak to anyone other than the patient for history (EMS, parent, family, police, friend...)? What history was obtained from this source @ -No Did you review nursing and triage notes (agree or disagree)? Why? @ -I reviewed and agree with nursing and triage notes Were old charts reviewed (outside hosp., previous admission, EMS record, old EKG, old radiological studies, urgent care reports/EKG's, [place] health care facility records)? Report findings @ -No old charts were reviewed Differential Diagnosis (chest pain, altered mental status, abdominal pain women, abdominal pain men, vaginal bleeding, weakness, fever, dyspnea, syncope, headache, dizziness, GI bleed, back pain, seizure, CVA, palpatations, mental health, musculoskeletal)? @ -Differential Abdominal Pain Men: Appendicitis, cholecystitis, diverticulosis, ischemic bowel, pancreatitis, hepatitis, UTI, gastroenteritis, AAA, incarcerated hernia, bowel obstruction, constipation, inflammatory bowel, hepatitis, peptic ulcer disease, splenic infarction, perforated viscus, testicular torsion, this is not meant to be an all-inclusive list EKG interpreted by me (3pts min.). @ -As above X-rays interpreted by me (1pt min.). @ -None done CT interpreted by me (1pt min.). @ -None done U/S interpreted by me (1pt. min.). @ -None done What testing was considered but not performed or refused? (CT, X-rays, U/S, l abs)? Why? @ -CT abdomen pelvis considered but deferred due to no red flag symptoms, lab work unremarkable, patient's symptoms completely improved after medication What meds were considered but not given or refused? Why? @ -None Did you discuss the management of the patient with other professionals (professionals i.e. LIZETH Sharma, [employer], lab, RT, psych nurse, social work coordinator, sr risk management consultant, teacher, command center officer, director case)? Give summary @ -No Was smoking cessation discussed for >3mins.? @ -No Was critical care preformed (if so, how long)? @ -No Were there social determinants of health that impacted care today? How? (Homelessness, low income, unemployed, alcoholism, drug addiction, transportation, low edu. Level, literacy, decrease access to med. care, fpc, rehab)? @ -No Was there de-escalation of care discussed even if they declined (Discuss DNR or withdrawal of care, Hospice)? DNR status @ -No What co-morbidities impacted this encounter? (DM, HTN, Smoking, COPD, CAD, Cancer, CVA, ARF, Chemo, Hep., AIDS, mental health diagnosis, sleep apnea, morbid obesity)? @ -None Was patient admitted / discharged? Hospital course, mention meds given and route, prescriptions, significant lab abnormalities, going to OR and other pertinent info. @ -Discharged. This is an 83-year-old male presenting with abdominal pain x 1 day. Describes a sharp, constant pain around the umbilicus with frequent belching that began after a meal consisting of grits. Vital signs are within acceptable limits. Abdomen soft and nontender. Patient was given GI cocktail and Pepcid. EKG reveals normal sinus rhythm no ST changes. Laboratory studies including CBC, CMP, troponin, lactic acid, lipase unremarkable. Upon reevaluation, patient states symptoms have completely resolved. Discussed negative findings with family, however family is concerned and opts to repeat troponin in 3 hours. Patient observed in ER and repeat troponin remains within normal limits. Upon reevaluation, patient remains asymptomatic. I believe symptoms are due to GERD at this time, no sign of emergent etiology. Advised patient to follow-up with PCP within the week. Patient is agreeable to plan. Strict return precautions discussed. Case was discussed with my ED attending Dr. Delcid. Patient discharged in stable condition. Undiagnosed new problem with uncertain prognosis? @ -No Drug Therapy requiring intensive monitoring for toxicity (Heparin, Nitro, Insulin, Cardizem)? @ -No Were any procedures done? @ -No Diagnosis/symptom? @ -GERD Acute, or Chronic, or Acute on Chronic? @ -Acute Uncomplicated (without systemic symptoms) or Complicated (systemic symptoms)? @ -Uncomplicated Side effects of treatment? @ -No Exacerbation, Progression, or Severe Exacerbation? @ -No Poses a threat to life or bodily function? How? (Chest pain, [place], [place], pneumonia, PE, COPD, DKA, ARF, appy, cholecystitis, CVA, Diverticulitis, Homicidal, Suicidal, threat to staff... and all critical care pts) @ -Unlikely at this time - Lab Data Result diagrams: 02/13/24 19:28 02/13/24 19:28 Lab Results 02/13/24 02/13/24 02/13/24 Range/Units 19:28 19:28 19:28 WBC 6.5 (3.8-10.6) k/uL RBC 4.59 (4.30-5.90) m/uL Hgb 16.1 (13.0-17.5) gm/dL Hct 48.9 (39.0-53.0) % MCV 106.4 H (80.0-100.0) fL MCH 35.1 H (25.0-35.0) pg MCHC 33.0 (31.0-37.0) g/dL RDW 13.0 (11.5-15.5) % Plt Count 166 (150-450) k/uL MPV 8.9 Neutrophils % 66 % Lymphocytes % 22 % Monocytes % 8 % Eosinophils % 2 % Basophils % 0 % Neutrophils # 4.3 (1.3-7.7) k/uL Lymphocytes # 1.4 (1.0-4.8) k/uL Monocytes # 0.5 (0-1.0) k/uL Eosinophils # 0.1 (0-0.7) k/uL Basophils # 0.0 (0-0.2) k/uL Macrocytosis Moderate Sodium 139 (137-145) mmol/L Potassium 3.6 (3.5-5.1) mmol/L Chloride 109 H (98-107) mmol/L Carbon Dioxide 23 (22-30) mmol/L Anion Gap 7 mmol/L BUN 26 H (9-20) mg/dL Creatinine 1.05 (0.66-1.25) mg/dL Est GFR (CKD-EPI)AfAm 77 (>60 ml/min/1.73 sqM) Est GFR (CKD-EPI)NonAf 67 (>60 ml/min/1.73 sqM) Glucose 88 (74-99) mg/dL Plasma Lactic Acid [place] 1.2 (0.7-2.0) mmol/L Calcium 10.0 (8.4-10.2) mg/dL Total Bilirubin 1.2 (0.2-1.3) mg/dL AST 40 (17-59) U/L ALT 28 (4-49) U/L Alkaline Phosphatase 77 (38-126) U/L Troponin I (0.000-0.034) ng/mL Total Protein 7.3 (6.3-8.2) g/dL Albumin 4.2 (3.5-5.0) g/dL Lipase 262 (23-300) U/L 02/13/24 02/13/24 Range/Units 19:33 22:50 WBC (3.8-10.6) k/uL RBC (4.30-5.90) m/uL Hgb (13.0-17.5) gm/dL Hct (39.0-53.0) % MCV (80.0-100.0) fL MCH (25.0-35.0) pg MCHC (31.0-37.0) g/dL RDW (11.5-15.5) % Plt Count (150-450) k/uL MPV Neutrophils % % Lymphocytes % % Monocytes % % Eosinophils % % Basophils % % Neutrophils # (1.3-7.7) k/uL Lymphocytes # (1.0-4.8) k/uL Monocytes # (0-1.0) k/uL Eosinophils # (0-0.7) k/uL Basophils # (0-0.2) k/uL Macrocytosis Sodium (137-145) mmol/L Potassium (3.5-5.1) mmol/L Chloride (98-107) mmol/L Carbon Dioxide (22-30) mmol/L Anion Gap mmol/L BUN (9-20) mg/dL Creatinine (0.66-1.25) mg/dL Est GFR (CKD-EPI)AfAm (>60 ml/min/1.73 sqM) Est GFR (CKD-EPI)NonAf (>60 ml/min/1.73 sqM) Glucose (74-99) mg/dL Plasma Lactic Acid [place] (0.7-2.0) mmol/L Calcium (8.4-10.2) mg/dL Total Bilirubin (0.2-1.3) mg/dL AST (17-59) U/L ALT (4-49) U/L Alkaline Phosphatase (38-126) U/L Troponin I 0.012 0.014 (0.000-0.034) ng/mL Total Protein (6.3-8.2) g/dL Albumin (3.5-5.0) g/dL Lipase (23-300) U/L - EKG Data -: EKG Interpreted by Me EKG Comments: EKG reveals normal sinus rhythm with no ST changes. Ventricular rate 79 bpm, TX interval 178, QRS duration 93, QT/QTc 348/383 Disposition Clinical Impression: GERD (gastroesophageal reflux disease) Disposition: HOME SELF-CARE Condition: Stable Instructions (If sedation given, give patient instructions): GERD (Gastroesophageal Reflux Disease) (ED) Additional Instructions: Follow-up with PCP within the week. Please return to the Emergency Department if symptoms worsen or any other concerns. Is patient prescribed a controlled substance at d/c from ED?: No Referrals: Cassidy Cook MD [Primary Care Provider] - 1-2 days Time of Disposition: 23:22
[2024-02-13] MEDS: FAMOTIDINE 20 MG/2 ML VIAL IV STA (19:36)
[2024-02-13] MEDS: MAG HYDROX/AL HYDROX/SIMETH 30 ML, HYOSCYAMINE ELIXIR 10 ML, LIDOCAINE VISCOUS 2% 10 ML PO STA (19:37)
[2024-02-13 20:02] LABS: Basophils % (A) 0 %; Eosinophils # (A) 0.1 k/uL (0-0.7); Eosinophils % (A) 2 %; HCT 48.9 % (39.0-53.0); HGB 16.1 gm/dL (13.0-17.5); Lymphocytes # (A) 1.4 k/uL (1.0-4.8); Lymphocytes % (A) 22 %; MCH 35.1 pg (25.0-35.0); MCV 106.4 fL (80.0-100.0); Macrocytosis Moderate; Mean Platelet Volume 8.9; Monocytes # (A) 0.5 k/uL (0-1.0); Monocytes % (A) 8 %; Neutrophils # (A) 4.3 k/uL (1.3-7.7); Neutrophils % (A) 66 %; Platelet Count 166 k/uL (150-450); RBC 4.59 m/uL (4.30-5.90); WBC 6.5 k/uL (3.8-10.6)
[2024-02-13 20:14] LABS: ALT 28 U/L (4-49); AST 40 U/L (17-59); African American GFR (CKD) 77 (>60 ml/min/1.73 sqM); Albumin 4.2 g/dL (3.5-5.0); Alkaline Phosphatase 77 U/L (38-126); Anion Gap 7 mmol/L; Blood Urea Nitrogen 26 mg/dL (9-20); Carbon Dioxide 23 mmol/L (22-30); Chloride 109 mmol/L (98-107); Glucose 88 mg/dL (74-99); Lipase 262 U/L (23-300); Non-African American GFR(CKD) 67 (>60 ml/min/1.73 sqM); Potassium 3.6 mmol/L (3.5-5.1); Sodium 139 mmol/L (137-145); Total Bilirubin 1.2 mg/dL (0.2-1.3); Total Protein 7.3 g/dL (6.3-8.2)
[2024-02-13 23:48] VITALS: BP 132/81; PULSE 76; RESP 18
== END 2024-02-13 23:48 | disposition home or self-care (01) ==
LOC: EC 19:03
CPT/HCPCS: 36415; 80053; 83605; 83690; 84484; 85025; 93005; 96374; 99284

== ENCOUNTER 2024-04-14 13:35 | Emergency (ER) | payer MEDICARE ==
--- NOTE | 2024-04-14 14:25 | ED ---
General Adult HPI - General Chief complaint: Eye Problems Stated complaint: L eye issue Time Seen by Provider: 04/14/24 14:12 Source: patient, RN notes reviewed, old records reviewed Mode of arrival: ambulatory Limitations: no limitations - History of Present Illness Initial comments: 83-year-old male who noticed some bleeding on the left eye when he woke this morning. He has no pain or discomfort. No drainage. No fever. No vision change. Patient denies any known trauma. - Related Data Home Medications Medication Instructions Recorded Confirmed Cholecalciferol [Vitamin D3 (25 2,000 unit PO DAILY 03/10/14 12/01/23 Mcg = 1000 Iu)] Potassium Chloride [Klor-Con 10] 10 meq PO QAM 03/10/14 12/01/23 Sildenafil Citrate [Viagra] 100 mg PO DIRECTED PRN 03/10/14 12/01/23 Tamsulosin HCl [Flomax] 0.4 mg PO BID 03/10/14 12/01/23 atenoloL [Tenormin] 25 mg PO QAM 03/10/14 12/01/23 HYDROcodone/APAP 10-325MG [[place] 1 tab PO Q6HR PRN 04/01/18 12/01/23 10-325] Latanoprost [Xalatan 0.005%] 1 drop BOTH EYES HS 04/01/18 12/01/23 Multivitamins, Thera [Multivitamin 1 tab PO DAILY 04/01/18 11/30/23 (formulary)] allopurinoL [Zyloprim] 300 mg PO QAM 04/01/18 12/01/23 Aspirin [Adult Low Dose Aspirin EC] 81 mg PO DAILY 06/27/22 11/30/23 Ezetimibe [Zetia] 5 mg PO QAM 06/27/22 12/01/23 Omeprazole 20 mg PO QAM 06/27/22 12/01/23 Thiamine [Vitamin B-1] 1 tab PO DAILY 06/27/22 12/01/23 Valsartan/Hydrochlorothiazide 1 tab PO QAM 06/27/22 12/01/23 [Diovan Hct 160-12.5 mg Tab] Vitamin B Complex 1 cap PO DAILY 06/27/22 12/01/23 Zinc Gluconate [Zinc] 50 mg PO DAILY 06/27/22 12/01/23 Allergies Allergy/AdvReac Type Severity Reaction Status Date / Time latex Allergy Unknown Verified 12/01/23 11:08 Review of Systems ROS Statement: Those systems with pertinent positive or pertinent negative responses have been documented in the HPI. ROS Other: All systems not noted in ROS Statement are negative. Past Medical History Past Medical History: GERD/Reflux, Hyperlipidemia, Hypertension, Osteoarthritis (OA), Prostate Disorder Additional Past Medical History / Comment(s): GOUT IN LEFT HAND pancreatitis History of Any Multi-Drug Resistant Organisms: None Reported Past Surgical History: Joint Replacement, Orthopedic Surgery Additional Past Surgical History / Comment(s): CRYSTAL CARPAL TUNNEL, bilat hip replacement, left knee replacement, PATIENT DENIES HISTORY OF HEART CATHERIZATION, ANTERIOR TOTAL LEFT HIP ARTHROPLASTY. BILATERAL CATARACTS REMOVAL/LENS, lft ankle Past Anesthesia/Blood Transfusion Reactions: No Reported Reaction Past Psychological History: No Psychological Hx Reported Smoking Status: Never smoker Past Alcohol Use History: Occasional Past Drug Use History: None Reported - Past Family History Brother(s) Family Medical History: Cancer General Exam Limitations: no limitations General appearance: alert, in no apparent distress Head exam: Present: atraumatic Eye exam: Present: PERRL, other (left eye has a medial subconjunctival hemorrhage) Respiratory exam: Present: normal lung sounds bilaterally. Absent: respiratory distress, wheezes Cardiovascular Exam: Present: regular rate, normal rhythm GI/Abdominal exam: Present: soft. Absent: distended, tenderness Extremities exam: Present: normal inspection Neurological exam: Present: alert, oriented X3, CN II-XII intact. Absent: motor sensory deficit Psychiatric exam: Present: normal affect, normal mood Course Vital Signs 04/14/24 13:46 Temperature 98.2 F Pulse Rate 82 Respiratory 16 Rate Blood Pressure 85/60 O2 Sat by Pulse 98 Oximetry Medical Decision Making - Medical Decision Making Was pt. sent in by a medical professional or institution (, PA, STITCHER SET UP OPERATOR AUT[employer]ATIC, urgent care, hospital, or longterm...) When possible be specific @ -No Did you speak to anyone other than the patient for history (EMS, parent, family, police, friend...)? What history was obtained from this source @ -No Did you review nursing and triage notes (agree or disagree)? Why? @ -I reviewed and agree with nursing and triage notes Were old charts reviewed (outside hosp., previous admission, EMS record, old EKG, old radiological studies, urgent care reports/EKG's, longterm records)? Report findings @ -No old charts were reviewed Differential Diagnosis: Corneal abrasion, subconjunctival hemorrhage, conjunct ivitis, iritis EKG interpreted by me (3pts min.). @ -As above X-rays interpreted by me (1pt min.). @ -None done CT interpreted by me (1pt min.). @ -None done U/S interpreted by me (1pt. min.). @ -None done What testing was considered but not performed or refused? (CT, X-rays, U/S, labs)? Why? @ -None What meds were considered but not given or refused? Why? @ -None Did you discuss the management of the patient with other professionals (professionals i.e. , PA, STITCHER SET UP OPERATOR [employer], lab, RT, psych nurse, social service agency director, corporation lawyer, teacher, worldwide chief creative officer, case consultant)? Give summary @ -No Was smoking cessation discussed for >3mins.? @ -No Was critical care preformed (if so, how long)? @ -No Were there social determinants of health that impacted care today? How? (Homelessness, low income, unemployed, alcoholism, drug addiction, transportation, low edu. Level, literacy, decrease access to med. care, senior living, rehab)? @ -No Was there de-escalation of care discussed even if they declined (Discuss DNR or withdrawal of care, Hospice)? DNR status @ -No What co-morbidities impacted this encounter? (DM, HTN, Smoking, COPD, CAD, Cancer, CVA, ARF, Chemo, Hep., AIDS, mental health diagnosis, sleep apnea, mo rbid obesity)? @ -None Was patient admitted / discharged? Hospital course, mention meds given and route, prescriptions, significant lab abnormalities, going to OR and other pertinent info. @ -83-year-old male who noted show bleeding on the medial aspect of the left eye. This is consistent with subconjunctival hemorrhage. Vision is unchanged. No pain. No irritation. No drainage. Patient will follow with primary care provider. Undiagnosed new problem with uncertain prognosis? @ -No Drug Therapy requiring intensive monitoring for toxicity (Heparin, Nitro, Insulin, Cardizem)? @ -No Were any procedures done? @ -No Diagnosis/symptom? @ -Subconjunctival hemorrhage Acute, or Chronic, or Acute on Chronic? @ -[Acute Uncomplicated (without systemic symptoms) or Complicated (systemic symptoms)? @ -Default Side effects of treatment? @ -No Exacerbation, Progression, or Severe Exacerbation? @ -No Poses a threat to life or bodily function? How? (Chest pain, [place], [place], pneumonia, PE, COPD, DKA, ARF, appy, cholecystitis, CVA, Diverticulitis, Homicidal, Suicidal, threat to staff... and all critical care pts) @ -No Disposition Clinical Impression: Subconjunctival hemorrhage Disposition: HOME SELF-CARE Condition: Good Instructions (If sedation given, give patient instructions): Subconjunctival Hemorrhage (ED) Is patient prescribed a controlled substance at d/c from ED?: No Referrals: Cassidy Cook MD [Primary Care Provider] - 1-2 days Arabella Hope MD [STAFF PHYSICIAN] - 1-2 days Time of Disposition: 14:25
[2024-04-14 14:41] VITALS: BP 96/76; PULSE 76; RESP 18; TEMP 98
== END 2024-04-14 14:37 | disposition home or self-care (01) ==
LOC: EC 13:35
DX: B30.3 Acute epidemic hemorrhagic conjunctivitis (enteroviral) (principal); Z91.040 Latex allergy status
CPT/HCPCS: 99283

== ENCOUNTER 2024-05-31 17:31 | Emergency (ER) | payer MEDICARE ==
--- NOTE | 2024-05-31 17:56 | ED ---
General Adult HPI - General Chief complaint: Upper Respiratory Infection Stated complaint: Congestion Time Seen by Provider: 05/31/24 17:41 Source: patient, RN notes reviewed Mode of arrival: ambulatory Limitations: no limitations - History of Present Illness Initial comments: This is an 83-year-old male with history of hypertension [facility]. He states that his daughter tested positive today for COVID and would like to be evaluated. He states over the past 2 to 3 days he has been experiencing congestion, mild runny nose and mild dry cough. He denies fevers, chills, difficulty breathing or chest pain. - Related Data Home Medications Medication Instructions Recorded Confirmed Cholecalciferol [Vitamin D3 (25 2,000 unit PO DAILY 03/10/14 12/01/23 Mcg = 1000 Iu)] Potassium Chloride [Klor-Con 10] 10 meq PO QAM 03/10/14 12/01/23 Sildenafil Citrate [Viagra] 100 mg PO DIRECTED PRN 03/10/14 12/01/23 Tamsulosin HCl [Flomax] 0.4 mg PO BID 03/10/14 12/01/23 atenoloL [Tenormin] 25 mg PO QAM 03/10/14 12/01/23 HYDROcodone/APAP 10-325MG [[place] 1 tab PO Q6HR PRN 04/01/18 12/01/23 10-325] Latanoprost [Xalatan 0.005%] 1 drop BOTH EYES HS 04/01/18 12/01/23 Multivitamins, Thera [Multivitamin 1 tab PO DAILY 04/01/18 11/30/23 (formulary)] allopurinoL [Zyloprim] 300 mg PO QAM 04/01/18 12/01/23 Aspirin [Adult Low Dose Aspirin EC] 81 mg PO DAILY 06/27/22 11/30/23 Ezetimibe [Zetia] 5 mg PO QAM 06/27/22 12/01/23 Omeprazole 20 mg PO QAM 06/27/22 12/01/23 Thiamine [Vitamin B-1] 1 tab PO DAILY 06/27/22 12/01/23 Valsartan/Hydrochlorothiazide 1 tab PO QAM 06/27/22 12/01/23 [Diovan Hct 160-12.5 mg Tab] Vitamin B Complex 1 cap PO DAILY 06/27/22 12/01/23 Zinc Gluconate [Zinc] 50 mg PO DAILY 06/27/22 12/01/23 Allergies Allergy/AdvReac Type Severity Reaction Status Date / Time latex Allergy Unknown Verified 05/31/24 17:36 Review of Systems ROS Statement: Those systems with pertinent positive or pertinent negative responses have been documented in the HPI. ROS Other: All systems not noted in ROS Statement are negative. Past Medical History Past Medical History: GERD/Reflux, Hyperlipidemia, Hypertension, Osteoarthritis (OA), Prostate Disorder Additional Past Medical History / Comment(s): GOUT IN LEFT HAND pancreatitis History of Any Multi-Drug Resistant Organisms: None Reported Past Surgical History: Joint Replacement, Orthopedic Surgery Additional Past Surgical History / Comment(s): CRYSTAL CARPAL TUNNEL, bilat hip replacement, left knee replacement, PATIENT DENIES HISTORY OF HEART CATHERIZATION, ANTERIOR TOTAL LEFT HIP ARTHROPLASTY. BILATERAL CATARACTS REMOVAL/LENS, lft ankle Past Anesthesia/Blood Transfusion Reactions: No Reported Reaction Past Psychological History: No Psychological Hx Reported Smoking Status: Never smoker Past Alcohol Use History: Occasional Past Drug Use History: None Reported - Past Family History Brother(s) Family Medical History: Cancer General Exam - General Exam Comments Initial Comments: Visual Physical Exam Vital signs reviewed General: Well-appearing, nontoxic, no acute distress. Head: Normocephalic, atraumatic Eyes: PERRLA, EOMI ENT: Airway patent Chest: Nonlabored breathing Skin: No visual rash, normal skin tone Neuro: Alert and oriented 3 Musculoskeletal: No gross abnormalities Limitations: no limitations General appearance: alert, in no apparent distress Eye exam: Present: normal appearance, PERRL, EOMI. Absent: scleral icterus, conjunctival injection, periorbital swelling ENT exam: Present: normal exam, mucous membranes moist Respiratory exam: Present: normal lung sounds bilaterally. Absent: respiratory distress, wheezes, rales, rhonchi, stridor Cardiovascular Exam: Present: regular rate, normal rhythm, normal heart sounds. Absent: systolic murmur, diastolic murmur, rubs, gallop, clicks GI/Abdominal exam: Present: soft, normal bowel sounds. Absent: distended, tenderness, guarding, rebound, rigid Extremities exam: Present: normal inspection, full ROM, normal capillary refill. Absent: tenderness, pedal edema, joint swelling, calf tenderness Course Vital Signs 05/31/24 05/31/24 17:33 18:08 Temperature 98.7 F Pulse Rate 113 H Respiratory 20 20 Rate Blood Pressure 128/74 O2 Sat by Pulse 98 Oximetry Medical Decision Making - Medical Decision Making Was pt. sent in by a medical professional or institution (LIZETH Sharma, DRONE OPERATOR, urgent care, hospital, or prison...) When possible be specific @ -No Did you speak to anyone other than the patient for history (EMS, parent, family, police, friend...)? What history was obtained from this source @ -No Did you review nursing and triage notes (agree or disagree)? Why? @ -I reviewed and agree with nursing and triage notes Were old charts reviewed (outside hosp., previous admission, EMS record, old EKG, old radiological studies, urgent care reports/EKG's, prison records)? Report findings @ -No old charts were reviewed Differential Diagnosis (chest pain, altered mental status, abdominal pain women, abdominal pain men, vaginal bleeding, weakness, fever, dyspnea, syncope, h eadache, dizziness, GI bleed, back pain, seizure, CVA, palpatations, mental health, musculoskeletal)? @ -COVID 19, RSV, influenza, pneumonia, acute bronchitis, URI, this list is not all inclusive EKG interpreted by me (3pts min.). @ -None X-rays interpreted by me (1pt min.). @ -None done CT interpreted by me (1pt min.). @ -None done U/S interpreted by me (1pt. min.). @ -None done What testing was considered but not performed or refused? (CT, X-rays, U/S, labs)? Why? @ -Chest x-ray was considered but deferred at this time. Pulmonary examination no acute deficits. Patient is not having difficulties in breathing and vitals are stable. Additionally, patient has had viral symptoms for a few days and there is medical clinical concern for pulmonary pathology at this time. Patient treated with deferring x-ray imaging. What meds were considered but not given or refused? Why? @ -None Did you discuss the management of the patient with other professionals (professionals i.e. LIZETH Sharma, DRONE OPERATOR, lab, RT, psych nurse, social welfare administrator, ball mill mixer, teacher, special weapons unit officer, manager of case)? Give summary @ -No Was smoking cessation discussed for >3mins.? @ -No Was critical care preformed (if so, how long)? @ -No Were there social determinants of health that impacted care today? How? (Homelessness, low income, unemployed, alcoholism, drug addiction, transportation, low edu. Level, literacy, decrease access to med. care, long term, rehab)? @ -No Was there de-escalation of care discussed even if they declined (Discuss DNR or withdrawal of care, Hospice)? DNR status @ -No What co-morbidities impacted this encounter? (DM, HTN, Smoking, COPD, CAD, Cancer, CVA, ARF, Chemo, Hep., AIDS, mental health diagnosis, sleep apnea, morbid obesity)? @ -None Was patient admitted / discharged? Hospital course, mention meds given and route, prescriptions, significant lab abnormalities, going to OR and other pertinent info. @ -Discharge. 83-year-old male presenting for encounter for COVID test. Patient has tested positive for COVID. Vitals are stable. Supportive treatment discussed at bedside and patient struck to follow-up with primary care provider for further evaluation. Case discussed with Dr. Garces Undiagnosed new problem with uncertain prognosis? @ -No Drug Therapy requiring intensive monitoring for toxicity (Heparin, Nitro, Insulin, Cardizem)? @ -No Were any procedures done? @ -No Diagnosis/symptom? @ -COVID19 Acute, or Chronic, or Acute on Chronic? @ -acute Uncomplicated (without systemic symptoms) or Complicated (systemic symptoms)? @ -uncomplicated Side effects of treatment? @ -No Exacerbation, Progression, or Severe Exacerbation? @ -No Poses a threat to life or bodily function? How? (Chest pain, [place], [place], pneumonia, PE, COPD, DKA, ARF, appy, cholecystitis, CVA, Diverticulitis, Homicidal, Suicidal, threat to staff... and all critical care pts) @ -No - Lab Data Lab Results 05/31/24 Range/Units 17:37 Influenza Type A (PCR) Not Detected (Not Detectd) Influenza Type B (PCR) Not Detected (Not Detectd) RSV (PCR) Not Detected (Not Detectd) SARS-CoV-2 (PCR) Detected A (Not Detectd) Disposition Clinical Impression: COVID-19 Disposition: HOME SELF-CARE Condition: Good Instructions (If sedation given, give patient instructions): COVID-19 (Coronavirus Disease 2019) (ED) Additional Instructions: Please return to the Emergency Department if symptoms worsen or any other concerns. Is patient prescribed a controlled substance at d/c from ED?: No Referrals: Cassidy Cook MD [Primary Care Provider] - 1-2 days Time of Disposition: 18:32
[2024-05-31 18:22] LABS: Influenza A Not Detected (Not Detectd); Influenza B Not Detected (Not Detectd); RSV Not Detected (Not Detectd)
[2024-05-31 19:02] VITALS: BP 113/75; PULSE 79; RESP 18; TEMP 98
== END 2024-05-31 19:05 | disposition home or self-care (01) ==
LOC: EC 17:31
DX: U07.1 COVID-19 (principal); Z91.040 Latex allergy status
CPT/HCPCS: 87636; 99283

== ENCOUNTER 2024-06-05 12:57 | Emergency (ER) | payer MEDICARE ==
[2024-06-05 14:09] LABS: Influenza A Not Detected (Not Detectd); Influenza B Not Detected (Not Detectd); RSV Not Detected (Not Detectd)
--- NOTE | 2024-06-05 14:19 | ED ---
Recheck HPI - General Chief Complaint: Recheck/Abnormal Lab/Rx Stated Complaint: Re-check Time Seen by Provider: 06/05/24 13:08 Source: patient, RN notes reviewed Mode of arrival: ambulatory Limitations: no limitations - History of Present Illness Onset/Timin -: days(s) Symptoms Since Prior Visit: improved Associated Symptoms: none - Related Data Home Medications Medication Instructions Recorded Confirmed Cholecalciferol [Vitamin D3 (25 2,000 unit PO DAILY 03/10/14 12/01/23 Mcg = 1000 Iu)] Potassium Chloride [Klor-Con 10] 10 meq PO QAM 03/10/14 12/01/23 Sildenafil Citrate [Viagra] 100 mg PO DIRECTED PRN 03/10/14 12/01/23 Tamsulosin HCl [Flomax] 0.4 mg PO BID 03/10/14 12/01/23 atenoloL [Tenormin] 25 mg PO QAM 03/10/14 12/01/23 HYDROcodone/APAP 10-325MG [[place] 1 tab PO Q6HR PRN 04/01/18 12/01/23 10-325] Latanoprost [Xalatan 0.005%] 1 drop BOTH EYES HS 04/01/18 12/01/23 Multivitamins, Thera [Multivitamin 1 tab PO DAILY 04/01/18 11/30/23 (formulary)] allopurinoL [Zyloprim] 300 mg PO QAM 04/01/18 12/01/23 Aspirin [Adult Low Dose Aspirin EC] 81 mg PO DAILY 06/27/22 11/30/23 Ezetimibe [Zetia] 5 mg PO QAM 06/27/22 12/01/23 Omeprazole 20 mg PO QAM 06/27/22 12/01/23 Thiamine [Vitamin B-1] 1 tab PO DAILY 06/27/22 12/01/23 Valsartan/Hydrochlorothiazide 1 tab PO QAM 06/27/22 12/01/23 [Diovan Hct 160-12.5 mg Tab] Vitamin B Complex 1 cap PO DAILY 06/27/22 12/01/23 Zinc Gluconate [Zinc] 50 mg PO DAILY 06/27/22 12/01/23 Allergies Allergy/AdvReac Type Severity Reaction Status Date / Time latex Allergy Unknown Verified 02/02/25 13:02 Review of Systems ROS Statement: Those systems with pertinent positive or pertinent negative responses have been documented in the HPI. ROS Other: All systems not noted in ROS Statement are negative. Past Medical History Past Medical History: GERD/Reflux, Hyperlipidemia, Hypertension, Osteoarthritis (OA), Prostate Disorder Additional Past Medical History / Comment(s): GOUT IN LEFT HAND pancreatitis History of Any Multi-Drug Resistant Organisms: None Reported Past Surgical History: Joint Replacement, Orthopedic Surgery Additional Past Surgical History / Comment(s): CRYSTAL CARPAL TUNNEL, bilat hip replacement, left knee replacement, PATIENT DENIES HISTORY OF HEART CATHERIZATION, ANTERIOR TOTAL LEFT HIP ARTHROPLASTY. BILATERAL CATARACTS REMOVAL/LENS, lft ankle Past Anesthesia/Blood Transfusion Reactions: No Reported Reaction Past Psychological History: No Psychological Hx Reported Smoking Status: Never smoker Past Alcohol Use History: Occasional Past Drug Use History: None Reported - Past Family History Brother(s) Family Medical History: Cancer General Exam Limitations: no limitations General appearance: alert, in no apparent distress Head exam: Present: atraumatic, normocephalic, normal inspection Eye exam: Present: normal appearance, PERRL, EOMI. Absent: scleral icterus, conjunctival injection, periorbital swelling ENT exam: Present: normal exam, mucous membranes moist Neck exam: Present: normal inspection. Absent: tenderness, meningismus, lymphadenopathy Respiratory exam: Present: normal lung sounds bilaterally. Absent: respiratory distress, wheezes, rales, rhonchi, stridor Cardiovascular Exam: Present: regular rate, normal rhythm, normal heart sounds. Absent: systolic murmur, diastolic murmur, rubs, gallop, clicks GI/Abdominal exam: Present: soft, normal bowel sounds. Absent: distended, tenderness, guarding, rebound, rigid Extremities exam: Present: normal inspection, full ROM, normal capillary refill. Absent: tenderness, pedal edema, joint swelling, calf tenderness Back exam: Present: normal inspection Neurological exam: Present: alert, oriented X3, CN II-XII intact Psychiatric exam: Present: normal affect, normal mood Skin exam: Present: warm, dry, intact, normal color. Absent: rash Course Vital Signs 06/05/24 12:59 Temperature 97.7 F Pulse Rate 86 Respiratory 16 Rate Blood Pressure 131/84 O2 Sat by Pulse 99 Oximetry Medical Decision Making - Medical Decision Making Was pt. sent in by a medical professional or institution (LIZETH Sharma, ADOBE BALL MIXER, urgent care, hospital, or detention...) When possible be specific @ -[No] Did you speak to anyone other than the patient for history (EMS, parent, family, police, friend...)? What history was obtained from this source @ -[No] Did you review nursing and triage notes (agree or disagree)? Why? @ -[I reviewed and agree with nursing and triage notes] Were old charts reviewed (outside hosp., previous admission, EMS record, old EKG, old radiological studies, urgent care reports/EKG's, detention records)? Report findings @ -[No old charts were reviewed] Differential Diagnosis (chest pain, altered mental status, abdominal pain women, abdominal pain men, vaginal bleeding, weakness, fever, dyspnea, syncope, headache, dizziness, GI bleed, back pain, seizure, CVA, palpatations, mental health, musculoskeletal)? @ -Differential Fever: Pneumonia, viral URI, endocarditis, myocarditis, pericarditis, otitis, sinusitis, peritonsillar Abscess, retropharyngeal Abscess, epiglottitis, peritonitis, appendicitis, Jen cystitis, diverticulitis, hepatitis, colitis, UTI, PID, TOA, pyelonephritis, prostatitis, epididymitis, meningitis, encephalitis, pulmonary embolism, CVA, thyroid storm, pancreatitis, adrenal crisis, cavernous sinus thrombosis, this is not meant to be an all-inclusive list. EKG interpreted by me (3pts min.). @ -Not done X-rays interpreted by me (1pt min.). @ -[None done] CT interpreted by me (1pt min.). @ -[None done] U/S interpreted by me (1pt. min.). @ -[None done] What testing was considered but not performed or refused? (CT, X-rays, U/S, labs)? Why? @ -[None] What meds were considered but not given or refused? Why? @ -[None] Did you discuss the management of the patient with other professionals (professionals i.e. LIZETH Sharma, ADOBE BALL MIXER, lab, RT, psych nurse, delinquency prevention social worker, digital media planner, teacher, hydrological technical officer, mental health case manager)? Give summary @ -[No] Was smoking cessation discussed for >3mins.? @ -[No] Was critical care preformed (if so, how long)? @ -[No] Were there social determinants of health that impacted care today? How? (Homelessness, low income, unemployed, alcoholism, drug addiction, transportation, low edu. Level, literacy, decrease access to med. care, custodial, rehab)? @ -[No] Was there de-escalation of care discussed even if they declined (Discuss DNR or withdrawal of care, Hospice)? DNR status @ -[No] What co-morbidities impacted this encounter? (DM, HTN, Smoking, COPD, CAD, Cancer, CVA, ARF, Chemo, Hep., AIDS, mental health diagnosis, sleep apnea, morbid obesity)? @ -[None] Was patient admitted / discharged? Hospital course, mention meds given and route, prescriptions, significant lab abnormalities, going to OR and other pertinent info. @ -[hospital course] Undiagnosed new problem with uncertain prognosis? @ -[No] Drug Therapy requiring intensive monitoring for toxicity (Heparin, Nitro, Insuli n, Cardizem)? @ -[No] Were any procedures done? @ -[No] Diagnosis/symptom? @ -COVID-19 Acute, or Chronic, or Acute on Chronic? @ -Acute Uncomplicated (without systemic symptoms) or Complicated (systemic symptoms)? @ -Uncomplicated Side effects of treatment? @ -[No] Exacerbation, Progression, or Severe Exacerbation? @ -[No] Poses a threat to life or bodily function? How? (Chest pain, [place], [place], pneumonia, PE, COPD, DKA, ARF, appy, cholecystitis, CVA, Diverticulitis, Homicidal, Suicidal, threat to staff... and all critical care pts) @ -[No] - Lab Data Lab Results 06/05/24 Range/Units 13:26 Influenza Type A (PCR) Not Detected (Not Detectd) Influenza Type B (PCR) Not Detected (Not Detectd) RSV (PCR) Not Detected (Not Detectd) SARS-CoV-2 (PCR) Detected A (Not Detectd) Disposition Clinical Impression: COVID-19 Disposition: HOME SELF-CARE Condition: Good Instructions (If sedation given, give patient instructions): COVID-19 (Coronavirus Disease 2019) (ED) Additional Instructions: Follow-up with urgent care/PCP for retest in 3 to 4 days Is patient prescribed a controlled substance at d/c from ED?: No Referrals: Cassidy Cook MD [Primary Care Provider] - 1-2 days Time of Disposition: 14:19
[2024-06-05 14:40] VITALS: BP 126/80; PULSE 82; RESP 18; TEMP 98
== END 2024-06-05 14:40 | disposition home or self-care (01) ==
LOC: EC 12:57
DX: U07.1 COVID-19 (principal); Z91.040 Latex allergy status
CPT/HCPCS: 87636; 99283

== ENCOUNTER → 2024-07-28 | Outpatient (CLI) | payer MEDICARE ==
--- NOTE | 2024-07-28 15:48 | US ---
EXAMINATION TYPE: US kidneys/renal and bladder DATE OF EXAM: 07/28/2024 COMPARISON: US 2016 CLINICAL INDICATION: Male, 83 years old with history of R79.9 ABNORMAL FINDING OF BLOOD CHEMISTRY, UN SPECI; TECHNIQUE: Grayscale imaging of the bilateral kidneys and urinary bladder: FINDINGS: EXAM MEASUREMENTS: Right Kidney: 10.6 x 4.7 x 5.2 cm Left Kidney: 11.8 x 5.2 x 5.9 cm Difficult and limited study due to patient body habitus Right Kidney: no hydronephrosis or masses seen Left Kidney: no hydronephrosis or masses seen Bladder: not fully distended No hydronephrosis or shadowing calculi. No gross evidence for renal mass. Cortical medullary differen tiation is maintained. The urinary bladder is under distended limiting evaluation. IMPRESSION: Limited examination due to patient's body habitus. No hydronephrosis or nephrolithiasis. [facility], , 07/28/2024 3:46 PM
== END | disposition home or self-care (01) ==
LOC: RADUSWWP 15:21
PROVIDERS: ATTEND Internal Medicine
DX: R79.9 Abnormal finding of blood chemistry, unspecified (principal)
CPT/HCPCS: 76770

== ENCOUNTER → 2024-09-09 | Outpatient (CLI) | payer MEDICARE ==
--- NOTE | 2024-09-13 11:01 | MR ---
EXAMINATION TYPE: MR pancreas wo/w con DATE OF EXAM: 09/09/2024 5:38 PM COMPARISON: Outside CT abdomen and pelvis July 31, 2024 CLINICAL INDICATION: Male, 84 years old with history of R93.89 ABNORMAL FINDINGS ON DX IMAGING OF OTH BODY, Abnormal US and CT IV Contrast: 10 cc Gadavist (None if empty) CONTRAST: Standard multiplanar, multisequence MRI departmental protocol images were obtained without contrast a nd with 10 mL intravenous Gadavist gadolinium contrast. FINDINGS: Suboptimal study due to respiratory motion. Pancreas: Suboptimal study due to motion and small size of the lesion. Redemonstration of thin-walled cyst in the pancreatic head coronal image 25. No abnormal enhancement is seen. Findings consistent w ith 8-9 mm thin-walled cyst. No ductal dilatation is identified. Remainder pancreas shows no addition al significant greater than 5 mm solid or cystic lesion. Other: Elevated left hemidiaphragm is redemonstrated. There are small simple appearing thin-walled cy sts scattered throughout the liver redemonstrated. Tiny dependent gallstone in gallbladder axials fro m L1 C7 is felt present. No biliary dilatation. Low dense thickening to both adrenal glands with sign al dropout consistent with lipid rich hyperplasia is present. There is some cortical thinning and sma ll simple appearing thin-walled cysts in both kidneys consistent with product of chronic medical robert l disease. No follow-up necessary. No abnormal small or large bowel dilatation. Colonic diverticulosi s again seen. No AAA. Multilevel degenerative spurring and disc space narrowing in the thoracolumbar spine is redemonstrated. IMPRESSION: Suboptimal study. Confirmation of 8 and 9 mm thin-walled cyst in the pancreatic head. Bas ed on size and patient's age a benign etiology is favored. Differential includes pseudocyst versus cy stic neoplasm. Consider repeat imaging in 1-2 years time to reassess. [facility], , 09/13/2024 10:59 AM
== END | disposition home or self-care (01) ==
LOC: RADMRIMAIN 16:04
PROVIDERS: ATTEND Internal Medicine
DX: K86.89 Other specified diseases of pancreas (principal); R93.89 Abnormal findings on diagnostic imaging of other specified body structures; K85.00 Idiopathic acute pancreatitis without necrosis or infection
CPT/HCPCS: 74183; A9585

== ENCOUNTER → 2024-11-18 | Outpatient (CLI) | payer MEDICARE ==
--- NOTE | 2024-11-18 10:11 | US ---
EXAMINATION TYPE: US abdomen complete DATE OF EXAM: 11/18/2024 COMPARISON: MR 09/09/24, CT 07/31/24 CLINICAL INDICATION: Male, 84 years old with history of R10.84 ABD PAIN; epigastric pain x 3 months TECHNIQUE: Grayscale and color Doppler imaging of the abdomen was performed. FINDINGS: EXAM MEASUREMENTS: Liver Length: 13.7 cm Gallbladder Wall: 0.2 cm CBD: 0.4 cm, color Doppler imaging was utilized to isolate the common bile duct for measurement. 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 Tail obscured by overlying bowel gas Liver: Increased echotexture. Suboptimal visualization due to overlying bowel gas, no dilated ducts, masses or cysts visualized on today's exam. Gallbladder: wnl as best visualized Evidence for sonographic Chatterjee's sign: no CBD: wnl Spleen: Obscured by overlying bowel gas Right Kidney: wnl, No hydronephrosis, calculi or masses seen Left Kidney: No hydronephrosis. Superior pole cyst measures 2.3 x 2.2 x 2.4 cm. Upper IVC: Obscured by overlying bowel gas Abd Aorta: mild atherosclerotic plaque visualized at distal aorta. Exam very limited by overlying bowel gas. IMPRESSION: 1. No evidence for acute process. 2. Pancreatic head cystic lesion as seen on prior 09/09/2024 MRI. Consider follow-up imaging in one ye ar with MRI MRCP for this lesion. 3. Left renal simple appearing cyst. 4. Hepatic steatosis. [facility], , 11/18/2024 10:09 AM
== END | disposition home or self-care (01) ==
LOC: RADUSWWP 08:57
PROVIDERS: ATTEND Internal Medicine
DX: K76.0 Fatty (change of) liver, not elsewhere classified (principal); K86.2 Cyst of pancreas; N28.1 Cyst of kidney, acquired
CPT/HCPCS: 76700